=== PATIENT | female | born 1995 | race Caucasian/White ===

== ENCOUNTER 2017-07-03 20:34 | Emergency (ER) | payer SELFPAY ==
[2017-07-03 20:35] VITALS: BP 100/62; PULSE 78; RESP 14; TEMP 36.4; O2SAT 98; BMI 21.9
--- NOTE | 2017-07-03 22:45 | ED.VISSUMM ---
- ER Visit Summary Date of Service: 07/03/17 Chief Complaint: Nausea and vomiting History of Present Illness: The patient is a 22 F nausea vomiting since yesterday. Total 4 episodes, sent home from work yesterday. 2 more episodes today prior to work. No hematemesis. No diarrhea. No abdominal pain. No fevers. She has been tolerating oral fluids since then. She missed work therefore came here. Denies urinary symptoms. Last menstrual period was on the of last month. No cough. No headaches or myalgias. She is a insulin-dependent diabetic for the past year, on 7030 Novolin of 20 units twice a day. Last use was at 6 PM 1 4 hours ago. However she did eat and also drank coffee with sugar in the waiting room. Normal sugars run between 150 and 200. She moved up here from [place] and try to get established with the PCP. Physical Examination: General: Alert and oriented ?3, no acute distress HEENT: Normocephalic, atraumatic. Moist mucosa membranes Neck: supple, nontender. Cardiovascular: Regular rate and rhythm, no murmurs Respiratory: Normal breath sounds, symmetric, no distress Abdomen: Soft, nontender, nondistended Extremities: Nontender, no edema, pulses intact ?4 Neuro: no focal neurological deficits. Test Results: BGT 439. . Emergency Department Course and Treatment: Patient ate a meal and coffee in the waiting room. Vomiting has improved she has been tolerating oral fluids. She has no clinical signs of DKA. She will continue her regimen, monitor her diet. She will be given follow-up with clinic for continued outpatient management. She will return if any worsening symptoms. She is dispensed Zofran for home use as needed. Treatment Plan: [] Disposition: Discharge Impression: 1. Nausea and vomitingresolved 2. Elevated blood glucose with history of diabetes This note was generated with [employer] dictation software. It may contain incorrect words, spelling, and punctuation that were not noted in review of the chart prior to signing ED Disposition - Plan for ED Patient: Disposition: Home or Assisted Living Chief Complaint: Nausea/Vomiting Diagnosis: Nausea and vomiting, Blood glucose elevated Instructions: ED Nausea Vomiting, Long-Term Complications of Diabetes Referrals: Care Physician,No Primary [Primary Care Provider] - Carli Ortega [NON-STAFF] - 3-5 Days
--- NOTE | 2017-07-03 22:50 | ED.DCSUM_ITS ---
- ER Visit Summary Date of Service: 07/03/17 Chief Complaint: Nausea and vomiting History of Present Illness: The patient is a 22 F nausea vomiting since yesterday. Total 4 episodes, sent home from work yesterday. 2 more episodes today prior to work. No hematemesis. No diarrhea. No abdominal pain. No fevers. She has been tolerating oral fluids since then. She missed work therefore came here. Denies urinary symptoms. Last menstrual period was on the of last month. No cough. No headaches or myalgias. She is a insulin- dependent diabetic for the past year, on 7030 Novolin of 20 units twice a day. Last use was at 6 PM 1 4 hours ago. However she did eat and also drank coffee with sugar in the waiting room. Normal sugars run between 150 and 200. She moved up here from [place] and try to get established with the PCP. Physical Examination: General: Alert and oriented ?3, no acute distress HEENT: Normocephalic, atraumatic. Moist mucosa membranes Neck: supple, nontender. Cardiovascular: Regular rate and rhythm, no murmurs Respiratory: Normal breath sounds, symmetric, no distress Abdomen: Soft, nontender, nondistended Extremities: Nontender, no edema, pulses intact ?4 Neuro: no focal neurological deficits. Test Results: BGT 439. . Emergency Department Course and Treatment: Patient ate a meal and coffee in the waiting room. Vomiting has improved she has been tolerating oral fluids. She has no clinical signs of DKA. She will continue her regimen, monitor her diet. She will be given follow-up with clinic for continued outpatient management. She will return if any worsening symptoms. She is dispensed Zofran for home use as needed. Treatment Plan: [] Disposition: Discharge Impression: 1. Nausea and vomitingresolved 2. Elevated blood glucose with history of diabetes This note was generated with [employer] dictation software. It may contain incorrect words, spelling, and punctuation that were not noted in review of the chart prior to signing ED Disposition - Plan for ED Patient: Disposition: Home or Assisted Living Chief Complaint: Nausea/Vomiting Diagnosis: Nausea and vomiting, Blood glucose elevated Instructions: ED Nausea Vomiting, Long-Term Complications of Diabetes Referrals: Care Physician,No Primary [Primary Care Provider] - Carli Ortega [NON-STAFF] - 3-5 Days
[2017-07-03 22:51] LABS: Bedside Glucose 439 mg/dL (70-110)
[2017-07-03] MEDS: Ondansetron ODT 4 MG Tablet PO (22:57)
[2017-07-03 22:58] VITALS: RESP 18
== END 2017-07-03 23:04 | disposition home or self-care (01) ==
LOC: ED 23:04
PROVIDERS: Emergency Provider Emergency Medicine
DX: E10.65 Type 1 diabetes mellitus with hyperglycemia (principal); Z79.4 Long term (current) use of insulin; R11.2 Nausea with vomiting, unspecified; Z72.0 Tobacco use
CPT/HCPCS: 82962; 99282

== ENCOUNTER 2017-07-09 23:44 | Emergency (ER) | payer SELFPAY ==
[2017-07-09 23:48] VITALS: BP 135/86; PULSE 96; RESP 16; TEMP 36.8; O2SAT 100; BMI 28.3
--- NOTE | 2017-07-10 00:35 | ED.VISSUMM ---
- ER Visit Summary Date of Service: 07/10/17 Chief Complaint: Sore throat History of Present Illness: The patient is a 22 F presenting with sore throat ?2 days. She complains of painful swallowing but no difficulty swallowing. No drooling. Denies fever. She has a mild cough. Denies other complaints. Physical Examination: Vitals are stable. Patient is afebrile. Alert no acute distress. HEENT exam: erythema of uvula, uvula is midline. Pharyngeal erythema with no exudate. Neck is supple. No meningismus. No lymphadenopathy Lungs are clear and equal bilaterally. Heart is regular rate and rhythm. Extremities are unremarkable. Skin is warm and dry. No rash Remainder of exam is unremarkable. Emergency Department Course and Treatment: She is given Decadron, Naprosyn, penicillin IM. Advised to follow-up with Dr. Jeffrey correspondence analyst for no doc. Advised return to ED if worsening complaints. Disposition: Discharge home Impression: Pharyngitis This note was generated with [employer] dictation software. It may contain incorrect words, spelling, and punctuation that were not noted in review of the chart prior to signing ED Disposition - Plan for ED Patient: Chief Complaint: Sore Throat Referrals: Care Physician,No Primary [Primary Care Provider] -
--- NOTE | 2017-07-10 00:38 | ED.DCSUM_ITS ---
- ER Visit Summary Date of Service: 07/10/17 Chief Complaint: Sore throat History of Present Illness: The patient is a 22 F presenting with sore throat ? 2 days. She complains of painful swallowing but no difficulty swallowing. No drooling. Denies fever. She has a mild cough. Denies other complaints. Physical Examination: Vitals are stable. Patient is afebrile. Alert no acute distress. HEENT exam: erythema of uvula, uvula is midline. Pharyngeal erythema with no exudate. Neck is supple. No meningismus. No lymphadenopathy Lungs are clear and equal bilaterally. Heart is regular rate and rhythm. Extremities are unremarkable. Skin is warm and dry. No rash Remainder of exam is unremarkable. Emergency Department Course and Treatment: She is given Decadron, Naprosyn, penicillin IM. Advised to follow-up with Dr. Jeffrey identification officer for no doc. Advised return to ED if worsening complaints. Disposition: Discharge home Impression: Pharyngitis This note was generated with [employer] dictation software. It may contain incorrect words, spelling, and punctuation that were not noted in review of the chart prior to signing ED Disposition - Plan for ED Patient: Chief Complaint: Sore Throat Referrals: Care Physician,No Primary [Primary Care Provider] -
--- NOTE | 2017-07-10 00:38 | ED.DEP ---
ED Disposition - Plan for ED Patient: Chief Complaint: Sore Throat Instructions: ED Pharyngitis Viral Referrals: Care Physician,No Primary [Primary Care Provider] - Romaine Jeffrey DO [STAFF PHYSICIAN] -
[2017-07-10] MEDS: Naproxen 500 MG Tablet PO (00:49)
[2017-07-10] MEDS: Penicillin G Benzathine 1.2 MU/2 ML Syringe IM (00:49)
[2017-07-10 00:57] VITALS: RESP 14
== END 2017-07-10 01:23 | disposition home or self-care (01) ==
LOC: ED 07-10 01:15
PROVIDERS: Emergency Provider Emergency Medicine
DX: J02.9 Acute pharyngitis, unspecified (principal); Z72.0 Tobacco use; E11.9 Type 2 diabetes mellitus without complications; Z79.4 Long term (current) use of insulin
CPT/HCPCS: 96372; 99283

== ENCOUNTER 2017-07-11 20:07 | Emergency (ER) | payer SELFPAY ==
[2017-07-11 20:08] VITALS: BP 116/69; PULSE 88; RESP 15; TEMP 37.1; BMI 28.5
--- NOTE | 2017-07-11 20:53 | ED.VISSUMM ---
- ER Visit Summary Date of Service: 07/11/17 Chief Complaint: Sore throat History of Present Illness: The patient is a 22 F who states that she has had 3 days of sore throat. No fevers. She was seen on July 09 and given a shot of penicillin G as well as a dose of Decadron. She states she has not improved. She notes her voice is very hoarse. She has tried salt water gargles. She states she continues to feel poorly. His history of bipolar depression anxiety Physical Examination: Afebrile vital signs are stable Gen: Well-nourished well-developed Head: Normocephalic atraumatic Eyes: Perrl EOMI ENT: TMs clear no rhinorrhea moist mucous membranes patient is without tonsils. Pharyngeal exam shows erythema. There is no abscess seen. She is handling secretions normally. Neck: Supple anterior lymphadenopathy no JVD nontender CVS: Regular rate rhythm no murmurs normal S1-S2 Respiratory: No distress clear to auscultation bilaterally chest nontender Abdomen: Soft nontender nondistended normal bowel sounds no masses Back: Nontender Extremity: Nontender no edema Skin: Normal color no rash Neuro: alert orientated ?3 CN II-XII intact normal strength sensation reflexes gait cerebellar Psych: Normal affect normal mood Emergency Department Course and Treatment: I believe this is most likely a viral pharyngitis. I have her do some viscous lidocaine gargles for eating and drinking. She is to continue supportive care at home. Impression: 1. Pharyngitis This note was generated with [email or web address] dictation software. It may contain incorrect words, spelling, and punctuation that were not noted in review of the chart prior to signing ED Disposition - Plan for ED Patient: Disposition: Home or Assisted Living Chief Complaint: Sore Throat Instructions: ED Pharyngitis Viral Prescriptions: Lidocaine 2% Viscous [Xylocaine Viscous] 15 ml PO Q6H PRN PRN #180 ml PRN Reason: Sore Throat Referrals: Care Physician,No Primary [Primary Care Provider] - Romaine Jeffrey DO [STAFF PHYSICIAN] - 1 Week if not improving
== END 2017-07-11 21:07 | disposition home or self-care (01) ==
PROVIDERS: Emergency Provider Emergency Medicine
DX: J02.9 Acute pharyngitis, unspecified (principal); Z72.0 Tobacco use
CPT/HCPCS: 99283

== ENCOUNTER 2017-12-04 21:08 | Emergency (ER) | payer SELFPAY ==
[2017-12-04 21:09] VITALS: BP 124/69; PULSE 71; RESP 16; TEMP 36.5; O2SAT 98; BMI 28.3
--- NOTE | 2017-12-04 21:39 | ED.VISSUMM ---
- ER Visit Summary Date of Service: 12/04/17 Chief Complaint: Dental pain History of Present Illness: The patient is a 22 F who presents with dental pain. She has noticed some tissue near 1 of her left lower teeth for about 5 months. However the pain was worse tonight about 2 hours prior to presentation. She does note hot and cold sensitivity. She has tried topical oral analgesics with little relief. No fevers. No vomiting. Physical Examination: Afebrile vitals are normal Patient has focal gingival decay at the left mandibular central incisor there does appear to be some exposed root she has tenderness on percussion no focal abscess amenable to incision and drainage Heart regular Lungs clear Test Results: Not indicated Emergency Department Course and Treatment: Patient will be given prescriptions for Penicillin VK and naproxen for symptom control. She was a list of dental clinics to follow-up with. She understands to return for new or worsening symptoms. She was discharged home. Treatment Plan: [] Disposition: Discharge Impression: Odontalgia This note was generated with [employer] dictation software. It may contain incorrect words, spelling, and punctuation that were not noted in review of the chart prior to signing ED Disposition - Plan for ED Patient: Chief Complaint: Dental Referrals: Care Physician,No Primary [Primary Care Provider] -
--- NOTE | 2017-12-04 21:41 | ED.DEP ---
ED Disposition - Plan for ED Patient: Chief Complaint: Dental Instructions: ED Tooth Pain Prescriptions: Naproxen [Naprosyn] 500 mg PO BID #20 tab Penicillin V Potassium 500 mg PO 4X/DAY #40 tab Referrals: Care Physician,No Primary [Primary Care Provider] -
[2017-12-04 22:06] VITALS: RESP 16
== END 2017-12-04 22:06 | disposition home or self-care (01) ==
PROVIDERS: Emergency Provider Emergency Medicine
DX: K02.7 Dental root caries (principal); E11.9 Type 2 diabetes mellitus without complications; Z79.4 Long term (current) use of insulin; Z72.0 Tobacco use
CPT/HCPCS: 99282

== ENCOUNTER 2018-01-10 08:55 | Emergency (ER) | payer SELFPAY ==
[2018-01-10 08:56] VITALS: BP 120/69; PULSE 86; RESP 15; TEMP 36.8; O2SAT 98; BMI 28.3
--- NOTE | 2018-01-10 09:45 | ED.VISSUMM ---
- ER Visit Summary Date of Service: 01/10/18 Chief Complaint: Left flank and abdominal pain History of Present Illness: The patient is a 22 F. No prior abdominal surgeries. 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 Patient states she has had intermittent abdominal pain since last evening. Associated diarrhea but no vomiting. No fever. She has had some mild dysuria. No history of stones. Denies any abdominal trauma. No fever. Physical Examination: Neck nontender. Lungs clear to auscultation bilaterally. Heart regular rate and rhythm. Abdomen is soft nondistended normal bowel sounds no peritoneal signs. Mild left upper quadrant. Normal bowel sounds. Both the right upper and right lower quadrants are unremarkable. No hernias or masses. No signs of obstruction. Back nontender no CVA tenderness. Moving all 4 extremities. Skin unremarkable other than multiple tattoos. Neurologic exam normal. Test Results: CBC normal white count of 10. Hemoglobin 14. Chemistries unremarkable. Gap is 7. Creatinine normal. Glucose is elevated 177. Patient does have a history of diabetes. Lipase normal at 86. Urine 5-10 whites 2+ bacteria. There are epithelial cells this may be contaminant. No nitrates. Serum test negative. A urine culture be sent. Multiple repeat exams. Her CT flank showed a right ovarian cyst of 2.9 x 2.8 cm. I do not think this is the cause of her pain. Emergency Department Course and Treatment: Patient treated with IV fluids, Toradol, morphine and Zofran. Treatment Plan: Resting comfortably. She will be started on Bactrim DS twice daily for 5 days for a possible UTI and a urine culture was sent. Disposition: discharge Impression: Acute left flank pain of uncertain etiology Rule out UTI Small right ovarian cyst This note was generated with [employer] dictation software. It may contain incorrect words, spelling, and punctuation that were not noted in review of the chart prior to signing ED Disposition - Plan for ED Patient: Chief Complaint: Abd Pain Instructions: ED Abdominal Pain Unkn Cause Prescriptions: Smz/Tmp Ds [Bactrim Ds] 1 tab PO BID #9 tab Referrals: Waldo Og MD [STAFF PHYSICIAN] - 1 Week if not improving Additional Instructions: Tylenol and Motrin for pain. The CAT scan shows no acute abnormality. There is an incidental small right ovarian causing her pain. Your urine may have an early infection or it may just be. We will do a urine culture. We will treat you with the antibiotic Bactrim 1 pill twice a day for 3 days.
[2018-01-10] MEDS: 0.9% Normal Saline 1,000 ML 1000 ML IV (10:02)
[2018-01-10] MEDS: Ondansetron 4 MG/2 ML Vial IV (10:03)
[2018-01-10] MEDS: Ketorolac 30 MG/ML Syringe IV (10:03)
[2018-01-10] MEDS: Morphine 4 MG/ML Syringe IV (10:03)
[2018-01-10 10:15] LABS: Mucous, Urine 0 SEEN /hpf (<or=2+)
[2018-01-10 10:20] LABS: Color, Urine Yellow (Yellow); Glucose, Dipstick 1000 mg/dl (Normal); Ketone-Dipstick Negative (Negative); Leukocyte Esterase-Dipstick 25 /ul (Negative); Nitrite-Dipstick Negative (Negative); Occult Blood-Urine Negative /ul (Negative); Protein-Dipstick 30 mg/dl (Negative); Specific Gravity, Urine 1.015 (1.002-1.030); Urine Bilirubin Dipstick Negative (Negative); Urine Clarity Clear (Clear); Urine Urobilinogen 4 mg/dl (Normal)
[2018-01-10 10:24] LABS: Absolute Lymphocyte Count 1.64 X10^3/ul (0.83-4.51); Absolute Neutrophil Count 7.8 X10^3/uL (2.0-7.7); Basophil# 0.04 X10^3/uL; Basophil% 0.4 % (0-1); Eosinophil# 0.05 X10^3/uL; Eosinophils% 0.5 % (0-5); Hematocrit 43.8 % (37-47); Hemoglobin 14.2 g/dl (12.0-15.0); Lymphocyte # 1.64 X10^3/ul (4.0); Lymphocyte % 16.1 % (19-41); Mean Corp Hgb Conc 32.4 g/gl (32-36); Mean Corpuscular Hgb 29.3 pg (27.0-32.0); Mean Corpuscular Volume 90.5 fL (81-99); Monocyte# 0.66 X10^3/uL; Monocyte% 6.5 % (0-10); Neutrophil # 7.75 X10^3/uL (2.7-7.7); Neutrophil % 76.3 % (47-70); Platelet Count 282 K/mm3 (150-450); RBC Distribution Width CV 13.5 % (11.6-14.6); RBC Distribution Width SD 44.6 fl (35.1-43.9); Red Blood Count 4.84 M/mm3 (4.2-5.4); White Blood Count 10.2 K/mm3 (4.4-11.0)
[2018-01-10 10:27] LABS: Red Blood Cells-Urine 0-5 SEEN /hpf (0-5); Squamous Epithelial Cells - UA 5-10 SEEN /hpf (5-10); White Blood Cells 5-10 SEEN /hpf (0-5)
[2018-01-10 10:28] LABS: Bacteria 2+ /hpf (None Seen)
[2018-01-10 10:29] LABS: POSITIVE COUNT NO; POSITIVE DIFFERENTIAL NO; POSITIVE MORPHOLOGY NO
[2018-01-10 10:32] LABS: Anion Gap 7 (5-15); BUN 8 mg/dL (7-18); Chloride 105 mmol/L (98-107); Creatinine, Serum 0.67 mg/dL (0.55-1.02); EST Glomerular Filtration Rate 117 mL/min (>60); Est Glom Filt Rate - Afr Amer 141 mL/min (>60); Estimated Creatinine Clearance 128.08 ml/min; Glucose 177 mg/dL (74-106); Lipase 86 U/L (73-393); Potassium 3.6 mmol/L (3.5-5.1); Sodium Level 139 mmol/L (136-145)
[2018-01-10 10:45] LABS: Pregnancy, Serum, hCG Quali. NEGATIVE Negative (0-9 Nonpreg)
[2018-01-10 11:49] VITALS: BP 110/60; PULSE 65; RESP 16; O2SAT 96
[2018-01-10 15:20] VITALS: BP 115/63; PULSE 54; RESP 14; O2SAT 97
--- NOTE | 2018-01-10 15:38 | ED.DEP ---
ED Disposition - Plan for ED Patient: Chief Complaint: Abd Pain Instructions: ED Abdominal Pain Unkn Cause Prescriptions: Smz/Tmp Ds [Bactrim Ds] 1 tab PO BID #9 tab Referrals: Waldo Og MD [STAFF PHYSICIAN] - 1 Week if not improving Additional Instructions: Tylenol and Motrin for pain. The CAT scan shows no acute abnormality. There is an incidental small right ovarian causing her pain. Your urine may have an early infection or it may just be. We will do a urine culture. We will treat you with the antibiotic Bactrim 1 pill twice a day for 3 days.
[2018-01-10] MEDS: Smz/Tmp Ds Tablet 1 TABLET PO (15:40)
== END 2018-01-10 15:45 | disposition home or self-care (01) ==
PROVIDERS: Emergency Provider Emergency Medicine
DX: R10.9 Unspecified abdominal pain (principal); N83.201 Unspecified ovarian cyst, right side; E11.9 Type 2 diabetes mellitus without complications; Z79.4 Long term (current) use of insulin; Z72.0 Tobacco use
CPT/HCPCS: 74176; 80048; 81001; 83690; 84703; 85025; 87077; 87086; 87088; 87186; 96361; 96374; 96375; 99284; J7030; A4216; J2405

== ENCOUNTER 2018-10-15 20:48 | Emergency (ER) | payer BC, SELFPAY ==
[2018-10-15 20:48] VITALS: BP 118/64; PULSE 87; RESP 16; TEMP 36.8; O2SAT 98; BMI 28.0
[2018-10-15] MEDS: Smz/Tmp Ds Tablet 1 TABLET PO (22:02)
[2018-10-15] MEDS: Cephalexin 250 MG Capsule 500 MG PO (22:02)
[2018-10-15 22:03] VITALS: BP 116/73; PULSE 83; RESP 16; TEMP 36.5; O2SAT 100
--- NOTE | 2018-10-15 22:54 | ED.VISSUMM ---
- ER Visit Summary Date of Service: 10/15/18 Chief Complaint: Abscess History of Present Illness: The patient is a 23 F with an abscess on her right posterior thigh. Physical Examination: Patient has a 3 cm area of induration with surrounding erythema about the size of her palm. This is located on her posterior right thigh. Test Results: None performed Emergency Department Course and Treatment: Patient gave verbal consent for I&D. Prepped with alcohol. Infiltrated with lidocaine. Patient tolerated this well. 2 cm incision was made and copious pus was drained. Wound was left open. Patient treated with Bactrim and Keflex. She was given wound care instructions. Follow-up with primary care for recheck. Return right away for any complications. Treatment Plan: As above Disposition: Discharge Impression: Right thigh abscess This note was generated with [employer] dictation software. It may contain incorrect words, spelling, and punctuation that were not noted in review of the chart prior to signing ED Disposition - Plan for ED Patient: Disposition: Home or Assisted Living Instructions: ED Abscess IandD Prescriptions: Cephalexin [Keflex] 500 mg PO Q6 #28 cap Smz/Tmp Ds [Bactrim Ds] 1 tab PO BID #14 tab Referrals: Carli Ortega [NON-STAFF] -
== END 2018-10-15 23:07 | disposition home or self-care (01) ==
LOC: ED 21:30
PROVIDERS: Emergency Provider Emergency Medicine
DX: L02.415 Cutaneous abscess of right lower limb (principal); Z72.0 Tobacco use
CPT/HCPCS: 10060; 99283

== ENCOUNTER 2019-04-21 10:01 | Emergency (ER) | payer BC, SELFPAY ==
[2019-04-21 10:02] VITALS: BP 127/73; PULSE 89; RESP 16; TEMP 36.7; O2SAT 97; BMI 29.2
--- NOTE | 2019-04-21 10:26 | ED.VISSUMM ---
- ER Visit Summary Date of Service: 04/21/19 Chief Complaint: Abdominal pain History of Present Illness: The patient is a 23 F 3 of diabetes. No prior abdominal surgeries. She had prior heart surgery for co-arctatian of the aorta. Patient states that she has had left upper quadrant abdominal pain for approximately a week. Associated nausea vomiting. No diarrhea. No constipation. No fever. She has had mild nausea vomiting. No dysuria. No vaginal bleeding or discharge. Last menstrual period was approximately a week ago. Nothing particular makes the pain better or worse. She is never had any abdominal surgeries. Physical Examination: Young female no acute distress vital signs stable afebrile. HEENT exam unremarkable. Neck nontender no lymphadenopathy. Lungs clear to auscultation bilaterally. Heart regular rhythm no murmur. Abdomen is soft. Nondistended normal bowel sounds no peritoneal signs. There is really no significant localizing tenderness. No masses. No signs of obstruction. No hernias. No right upper right lower quadrant tenderness. Moving all 4 extremities.. Calves are nontender without edema or cords. Neurologically she is awake and alert with no focal motor or sensory deficits. Back exam is nontender. Test Results: CBC normal white count 8. Hemoglobin 15. Chemistries normal normal creatinine gap. Liver enzymes and lipase normal. UA normal. test negative. Emergency Department Course and Treatment: Patient treated with IV fluids and IV Zofran. She is a very benign abdominal exam. She has significant work-up about a year ago which at that time had unremarkable labs and a CAT scan only showing a ovarian cyst. Repeat exam at 1220 patient's abdomen is benign. She and I went over all of her test results. She is had a prior CT a year ago. I do not feel that is necessary today. Treatment Plan: Zofran as needed for nausea. Tylenol for pain. Follow-up with your doctor. Disposition: Discharge Impression: Abdominal pain uncertain etiology of the left upper quadrant. Nausea vomiting History of diabetes This note was generated with [employer] dictation software. It may contain incorrect words, spelling, and punctuation that were not noted in review of the chart prior to signing ED Disposition - Plan for ED Patient: Referrals: Care Physician,No Primary [Primary Care Provider] -
[2019-04-21 10:45] LABS: Absolute Lymphocyte Count 2.41 X10^3/uL (0.83-4.51); Basophil# 0.08 X10^3/uL; Eosinophil# 0.25 X10^3/uL; Hematocrit 44.6 % (37-47); Hemoglobin 15.1 g/dL (12.0-15.0); Lymphocyte # 2.41 X10^3/ul (4.0); Lymphocyte % 29.3 % (19-41); Mean Corp Hgb Conc 33.9 g/dL (32-36); Mean Corpuscular Volume 88.5 fL (81-99); Mean Platelet Vol. 10.4 fl (6.2-12.0); Monocyte# 0.48 X10^3/uL; Monocyte% 5.8 % (0-10); NRBC Flagged by Analyzer 0 % (0-5); Neutrophil # 4.98 X10^3/uL (2.7-7.7); Neutrophil % 60.7 % (47-70); Platelet Count 301 K/mm3 (150-450); RBC Distribution Width CV 12.5 % (11.6-14.6); Red Blood Count 5.04 M/mm3 (4.2-5.4); White Blood Count 8.2 K/mm3 (4.4-11.0)
[2019-04-21 10:59] LABS: Internal QC Validated? YES +Cl - CLEAR BKGD; Pregnancy, Serum, hCG Quali. NEGATIVE Negative
[2019-04-21 11:02] LABS: AST(SGOT) 9 U/L (15-37); Alanine Aminotransfer ALT/SGPT 15 U/L (13-56); Albumin, Serum 3.7 g/dL (3.2-5.0); Alkaline Phosphatase 87 U/L (45-117); Anion Gap 4 (5-15); BUN 16 mg/dL (7-18); BUN/Creat Ratio 20.2 RATIO (10-20); Bilirubin, Direct 0.13 mg/dL (0.00-0.30); Calcium,Total 9.2 mg/dL (8.5-10.1); Chloride 103 mmol/L (98-107); Creatinine, Serum 0.79 mg/dL (0.55-1.02); EST Glomerular Filtration Rate 95 mL/min (>60); Est Glom Filt Rate - Afr Amer 115 mL/min (>60); Globulin 3.7 g/dL (2.2-4.2); Glucose 145 mg/dL (74-106); Lipase 89 U/L (73-393); Potassium 4.1 mmol/L (3.5-5.1); Protein, Total 7.4 g/dL (6.4-8.2); Sodium Level 138 mmol/L (136-145)
[2019-04-21] MEDS: 0.9% Normal Saline 1,000 ML 1000 ML IV (11:06)
[2019-04-21] MEDS: Ondansetron 4 MG/2 ML Vial IV (11:06)
[2019-04-21 11:12] LABS: Mucous, Urine 0 SEEN /hpf (<or=2+); Red Blood Cells-Urine 0 SEEN /hpf (0-5)
[2019-04-21 11:15] LABS: Color, Urine Yellow (Yellow); Glucose, Dipstick Normal (Normal); Ketone-Dipstick Negative (Negative); Leukocyte Esterase-Dipstick 25 /ul (Negative); Nitrite-Dipstick Negative (Negative); Occult Blood-Urine Negative /ul (Negative); Protein-Dipstick 15 mg/dl (Negative); Urine Bilirubin Dipstick Negative (Negative); Urine Clarity Clear (Clear); Urine Urobilinogen Normal (Normal)
[2019-04-21 11:33] LABS: Bacteria 1+ /hpf (None Seen); Squamous Epithelial Cells - UA 0-5 SEEN /hpf (5-10); White Blood Cells 0-5 SEEN /hpf (0-5)
[2019-04-21 12:20] LABS: Bedside Glucose 77 mg/dL (70-110)
--- NOTE | 2019-04-21 12:28 | ED.DEP ---
ED Disposition - Plan for ED Patient: Disposition: Home or Assisted Living Instructions: ABDOMINAL PAIN, Unknown Cause, (Female) Referrals: Waldo Og MD [STAFF PHYSICIAN] - 3-5 Days if not improving Additional Instructions: Fluids and rest. Follow-up with a local primary care physician. All your tests were normal today.
[2019-04-21 12:34] VITALS: BP 105/59; PULSE 69; RESP 16; O2SAT 98
== END 2019-04-21 12:40 | disposition home or self-care (01) ==
PROVIDERS: Emergency Provider Emergency Medicine
DX: R10.12 Left upper quadrant pain (principal); R11.2 Nausea with vomiting, unspecified; E11.9 Type 2 diabetes mellitus without complications; Z79.4 Long term (current) use of insulin; Z72.0 Tobacco use
CPT/HCPCS: 80048; 80076; 81001; 82962; 83690; 84703; 85025; 96361; 96374; 99283; J7030; A4216; J2405

== ENCOUNTER 2019-05-18 11:03 | Observation (INO) | payer BC, SELFPAY ==
[2019-05-18 11:03] VITALS: BP 127/72; PULSE 120; RESP 16; TEMP 36.6; O2SAT 99; BMI 26.5
[2019-05-18] MEDS: 0.9% Normal Saline 1,000 ML 1000 ML IV ×2 (11:20→11:58)
--- NOTE | 2019-05-18 11:22 | RAD_ITS ---
STUDY: X-RAY CHEST REASON FOR EXAM: Female, 24 years old. n/v left abd pain started this am TECHNIQUE: PA and lateral views of the chest. COMPARISON: 05/27/2017 FINDINGS: EKG leads project over the chest. The lungs are clear and expanded. There is no demonstrated pleural abnormality. Normal size heart. Normal mediastinum and curly. Normal visualized pulmonary arteries. Normal visualized aortic arch and descending thoracic aorta. There are diffuse degenerative changes of the visualized thoracic spine. Normal visualized ribs, clavicles, and shoulders. There is no demonstrated abnormality of the visualized soft tissue structures of the upper abdomen. RAD/Chest PA and Lateral IMPRESSION: No acute cardiopulmonary process. Electronically Signed: Chidi Wen MD ([place]) at 12:25 EST , Service support ,
--- NOTE | 2019-05-18 11:23 | ED.VIS.GEN ---
History of Present Illness Chief Complaint: Nausea/Vomiting Informant: Patient Onset: Today Context: Gradual Onset Timing: Continuous Quality: nonbilious n/v. soreness. Location: lower abd, only when vomiting. n/v started first. Current Severity: Moderate - nausea. no pain. Maximum Severity: Moderate Worsened by: vomiting Relieved by: nothing Associated Symptoms: cough prod of yellow sputum x 2 mos. feeling sob this AM. Narrative: No fevers. Patient is a type I diabetic, when she started vomiting this morning she took her insulin and then checked her blood sugar and it was over 400. She does not remember what it was yesterday. She felt fine except for the productive cough prior to this morning. Denies any diarrhea. No known sick contacts with similar symptoms. 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 MRSA buttock infection. Lives: Spouse/ Significant Other Smoking Status: Current every day smoker Drugs: None Review of Systems General: Reports: Malaise. Denies: Chills, Fever, Sweats Eyes: Denies: Visual changes - bilaterally, Diplopia ENT: Denies: Bilateral ear pain, Rhinorrhea, Sore throat Cardiovascular: Denies: Chest pain, Palpitations Respiratory: Reports: Dyspnea, Cough, Sputum. Denies: Dyspnea on exertion, Orthopnea Gastrointestinal: Reports: Abdominal pain, Nausea, Vomiting. Denies: Diarrhea, Melena, Hematochezia Genitourinary: Reports: Frequency - today only. Denies: Dysuria, Hematuria Musculoskeletal: Denies: Back pain, Extremity Pain Skin: Denies: Rash, Wounds Neurological: Denies: Headache, Weakness, Numbness Endocrine: Reports: Polyuria. Denies: Heat intolerance, Cold intolerance Physical Exam Vital Signs/Narrative: Vital Signs Temp Pulse Resp BP Pulse Ox 05/18/19 11:03 97.8 F 120 H 16 127/72 H 99 Inital Vital Signs reviewed: Yes General: Well nourished, Well developed, No Acute Distress Head: Normocephalic, Atraumatic Eyes: Perrl, EOMI ENT: Moist mucous membranes, No rhinorrhea Neck: Supple, Nontender, No lymphadenopathy Cardiovascular: Regular rate, Regular rhythm, No murmurs, Tachycardia Respiratory: No distress, CTA bilaterally, Chest nontender Abdomen: Soft, Nontender, Nondistended, Normal bowel sounds Back: Nontender, Normal Inspection Extremities: Nontender, No edema Skin: Normal color, No rash, No Trauma Neurological: Alert, Oriented x3, Cranial nerves II-XII grossly intact, Normal Strength, Normal Sensation, Normal Gait Psychological: Normal affect, Normal Mood Diagnostic/Tx/Re-eval Chest X-Ray - ED: 2 View, Read by ED Physician, Normal, Heart, Lungs, Mediastinum, Bony Structures, No Acute Disease 05/18/19 11:22 Chest PA and Lateral [RAD] Stat Laboratory Results 05/18/19 05/18/19 05/18/19 11:20 11:20 11:20 WBC 10.6 RBC 5.41 H Hgb 15.7 H Hct 48.8 H MCV 90.2 MCH 29.0 MCHC 32.2 RDW Std Deviation 43.3 RDW Coeff of Raymundo 13.1 Plt Count 328 MPV 10.7 Immature Gran % (Auto) 0.700 Neut % (Auto) 77.7 H Lymph % (Auto) 15.4 L [place] % (Auto) 4.0 Eos % (Auto) 1.4 Baso % (Auto) 0.8 Absolute Neuts (auto) 8.3 H Absolute Lymphs (auto) 1.64 Nucleated RBC % 0 Specimen Type VBG pH VBG pO2 VBG O2 Sat (Calc) VBG O2 Content VBG Base Excess POC Mix VBG pCO2 Pt Tmp O2 Delivery Device Blood Gas Notified Whom Blood Gas Notified Time Sodium 135 L Potassium 4.4 Chloride 102 Carbon Dioxide 19.0 L Anion Gap 14 BUN 16 Creatinine 1.02 Estim Creat Clear Calc 82.70 Est GFR (MDRD) Af Amer 86 Est GFR (MDRD) Non-Af 71 BUN/Creatinine Ratio 15.7 Glucose 399 H Calcium 9.0 Urine Color Urine Clarity Urine pH Ur Specific [place] Urine Protein Urine Glucose (UA) Urine Ketones Urine Occult Blood Urine Nitrite Urine Bilirubin Urine Urobilinogen Ur Leukocyte Esterase Urine RBC Urine WBC Ur Squamous Epith Cells Urine Bacteria Urine Mucus Urine Test Acetone Level SMALL H POC Glucose 05/18/19 05/18/19 05/18/19 11:20 11:20 11:30 WBC RBC Hgb Hct MCV MCH MCHC RDW Std Deviation RDW Coeff of Raymundo Plt Count MPV Immature Gran % (Auto) Neut % (Auto) Lymph % (Auto) [place] % (Auto) Eos % (Auto) Baso % (Auto) Absolute Neuts (auto) Absolute Lymphs (auto) Nucleated RBC % Specimen Type VBG pH VBG pO2 VBG O2 Sat (Calc) VBG O2 Content VBG Base Excess POC Mix VBG pCO2 Pt Tmp O2 Delivery Device Blood Gas Notified Whom Blood Gas Notified Time Sodium Potassium Chloride Carbon Dioxide Anion Gap BUN Creatinine Estim Creat Clear Calc Est GFR (MDRD) Af Amer Est GFR (MDRD) Non-Af BUN/Creatinine Ratio Glucose Calcium Urine Color Yellow Urine Clarity Clear Urine pH 5.0 Ur Specific [place] 1.020 Urine Protein 30 H Urine Glucose (UA) 1000 H Urine Ketones 150 H Urine Occult Blood Negative Urine Nitrite Negative Urine Bilirubin Negative Urine Urobilinogen Normal Ur Leukocyte Esterase Negative Urine RBC 0 SEEN Urine WBC 0 SEEN Ur Squamous Epith Cells 0-5 SEEN Urine Bacteria 0 SEEN Urine Mucus 0 SEEN Urine Test Negative Acetone Level POC Glucose 399 H 05/18/19 11:53 WBC RBC Hgb Hct MCV MCH MCHC RDW Std Deviation RDW Coeff of Raymundo Plt Count MPV Immature Gran % (Auto) Neut % (Auto) Lymph % (Auto) [place] % (Auto) Eos % (Auto) Baso % (Auto) Absolute Neuts (auto) Absolute Lymphs (auto) Nucleated RBC % Specimen Type JONNY VBG pH 7.22 L VBG pO2 39 VBG O2 Sat (Calc) 63 VBG O2 Content 18 L VBG Base Excess -11 L POC Mix VBG pCO2 Pt Tmp 40.5 L O2 Delivery Device Room Air Blood Gas Notified Whom ED Blood Gas Notified Time 1151 Sodium Potassium Chloride Carbon Dioxide Anion Gap BUN Creatinine Estim Creat Clear Calc Est GFR (MDRD) Af Amer Est GFR (MDRD) Non-Af BUN/Creatinine Ratio Glucose Calcium Urine Color Urine Clarity Urine pH Ur Specific [place] Urine Protein Urine Glucose (UA) Urine Ketones Urine Occult Blood Urine Nitrite Urine Bilirubin Urine Urobilinogen Ur Leukocyte Esterase Urine RBC Urine WBC Ur Squamous Epith Cells Urine Bacteria Urine Mucus Urine Test Acetone Level POC Glucose - Medical Decision Making Work-up is consistent with DKA. Her chest x-ray does not show any pneumonia. Her urinalysis shows no infection. This may be related to her insulin usage and diet. She probably has a viral URI, there has been a high prevalence of multiple respiratory viruses in the area recently. We will start an insulin drip in peripheral IV for now and admit to the hospital. 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
[2019-05-18 11:31] LABS: Bacteria 0 SEEN /hpf (None Seen); Mucous, Urine 0 SEEN /hpf (<or=2+); Red Blood Cells-Urine 0 SEEN /hpf (0-5); White Blood Cells 0 SEEN /hpf (0-5)
[2019-05-18] MEDS: Ondansetron 4 MG/2 ML Vial IV (11:31)
[2019-05-18 11:33] LABS: Absolute Lymphocyte Count 1.64 X10^3/uL (0.83-4.51); Absolute Neutrophil Count 8.3 X10^3/uL (2.0-7.7); Basophil# 0.09 X10^3/uL; Basophil% 0.8 % (0-1); Eosinophil# 0.15 X10^3/uL; Eosinophils% 1.4 % (0-5); Hematocrit 48.8 % (37-47); Hemoglobin 15.7 g/dL (12.0-15.0); Lymphocyte # 1.64 X10^3/ul (4.0); Lymphocyte % 15.4 % (19-41); Mean Corp Hgb Conc 32.2 g/dL (32-36); Mean Corpuscular Volume 90.2 fL (81-99); Mean Platelet Vol. 10.7 fl (6.2-12.0); Monocyte# 0.43 X10^3/uL; NRBC Flagged by Analyzer 0 % (0-5); Neutrophil # 8.26 X10^3/uL (2.7-7.7); Neutrophil % 77.7 % (47-70); Platelet Count 328 K/mm3 (150-450); RBC Distribution Width CV 13.1 % (11.6-14.6); RBC Distribution Width SD 43.3 fl (35.1-43.9); Red Blood Count 5.41 M/mm3 (4.2-5.4); White Blood Count 10.6 K/mm3 (4.4-11.0)
[2019-05-18 11:34] LABS: Color, Urine Yellow (Yellow); Glucose, Dipstick 1000 mg/dl (Normal); Leukocyte Esterase-Dipstick Negative /ul (Negative); Nitrite-Dipstick Negative (Negative); Occult Blood-Urine Negative /ul (Negative); Protein-Dipstick 30 mg/dl (Negative); Urine Bilirubin Dipstick Negative (Negative); Urine Clarity Clear (Clear); Urine Urobilinogen Normal (Normal)
[2019-05-18 11:35] LABS: Internal QC Validated? YES +Cl - CLEAR BKGD; Ketone-Dipstick 150 mg/dl (Negative); Pregnancy, Urine Negative Negative
[2019-05-18 11:35] LABS: Bedside Glucose 399 mg/dL (70-110)
[2019-05-18 11:39] LABS: Squamous Epithelial Cells - UA 0-5 SEEN /hpf (5-10)
[2019-05-18 11:49] LABS: Anion Gap 14 (5-15); BUN 16 mg/dL (7-18); BUN/Creat Ratio 15.7 RATIO (10-20); Chloride 102 mmol/L (98-107); Creatinine, Serum 1.02 mg/dL (0.55-1.02); EST Glomerular Filtration Rate 71 mL/min (>60); Est Glom Filt Rate - Afr Amer 86 mL/min (>60); Glucose 399 mg/dL (74-106); Potassium 4.4 mmol/L (3.5-5.1); Sodium Level 135 mmol/L (136-145)
[2019-05-18 11:56] LABS: Blood Gas Specimen Type VEN; O2 Delivery Device Room Air; Time Given 1151; VBG BASE EXCESS -11 mmol/L (-1.0-3.5); VBG Bicarbonate 17 mmol/L (22-26); VBG Oxygen Content 18 mmol/L (23-33); VBG PO2 39 mmHg (25-40); VBG SO2 63 % (50-70); VBG pCO2 40.5 mmHg (41-51); VBG pH 7.22 (7.32-7.42)
[2019-05-18 12:52] VITALS: BP 135/75; PULSE 84; RESP 17; O2SAT 99
--- NOTE | 2019-05-18 12:59 | HP.PCM_ITS ---
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 The patient is a 24 year old F who presents emergency room due to nausea, vomiting and abdominal pain. Patient also reports blood sugar check at home was greater than 400. Since being admitted she denies further GI symptoms. Tearful during assessment and does not want to be admitted, stating I have to be to work at 7 AM. Patient admits to very infrequent blood glucose checks at home. Patient reports provider in [place] prescribed NovoLog 70/30 a few years ago and patient now gets this [id number] at [facility]. Patient reports compliant with daily insulin regimen. Other past medical history includes recurrent buttock abscesses/MRSA infection, tobacco dependence, occasional marijuana use. Past Medical History Past Medical History (Chronic Problems): Chronic Problems Type 1 diabetes mellitus (Chronic) MRSA (methicillin resistant Staphylococcus aureus) infection (Chronic) Allergies azithromycin [From Zithromax] Adverse Reaction (Verified 05/18/19 11:07) Rash Home Medications: Ambulatory Orders Medication Instructions Recorded Insulin NPH/Reg 70/30 [Novolin 20 units SC BIDAC 01/10/18 70/30] Surgical History: - - aorta coarctation repair. MRSA buttock infection. Tonsillectomy. 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 Denies: Head Aches, Sinus Congestion, Sinus Drainage Cardiovascular: Denies: Chest Pain, Edema, Light Headedness, Palpitations, Syncope Respiratory: Reports: Cough. Denies: Shortness of Breath, Sputum production, Wheezing Gastrointestinal: Reports: Abdominal Pain, Nausea, Vomiting Genitourinary: Denies: Dysuria Musculoskeletal: Denies: Joint Pain, Joint Tenderness Skin: Denies: Rash, Wounds Neurological: Denies: Numbness, Tingling, Focal weakness Psychiatric: Denies: Anxiety, Depression, Homicidal Ideations, Suicidal Ideation s Hematologic/ Lymphatic: Denies: Easy Bruising, Easy Bleeding VTE Information - Inpt Only VTE Present on Admission: No VTE Mechan Device Prophylaxis: None VTE Pharm Prophylaxis ordered?: No Reason prophylaxis not ordered:: Treatment Not Indicated Patient Problems: Active and Suspected Problems DKA (diabetic ketoacidosis) (Acute) - Physical Exam Vitals/I&O's: Vital Signs Temp Pulse Resp BP Pulse Ox 97.8 F 84 17 135/75 H 99 05/18/19 11:03 05/18/19 12:52 05/18/19 12:52 05/18/19 12:52 05/18/19 12:52 Oxygen Delivery Method Room Air Weight: 169 lb 9.6 oz Body Mass Index (BMI) 26.5 Finger Stick Blood Glucose 399 Intake and Output for Last 24 Hours 05/16/19 05/17/19 05/18/19 23:59 23:59 23:59 Intake Total 1999 Balance 1999 General: Alert, Oriented x3, Cooperative HEENT: Atraumatic, PERRLA, EOMI, Normocephalic Neck: Supple, No JVD, Negative Carotid Bruits Lungs: Clear to auscultation, Normal air movement Cardiovascular: Regular rate, Regular Rhythm, Normal S1, Normal S2, No murmurs Abdomen: Bowel Sounds Present, Soft, Non Tender, Non-Distended Extremities: No clubbing, No cyanosis, No edema, Capillary Refill Less than 3 Seconds Skin: No rashes, No breakdown Musculoskeletal: No Tenderness to Palpation of Joints or Extremities Neurological: Cranial nerves II-XII grossly intact, Neuro grossly intact Psych/Mental Status: Normal Affect, Appropriate Laboratory Results 05/18/19 11:20: WBC 10.6, RBC 5.41 H, Hgb 15.7 H, Hct 48.8 H, MCV 90.2, MCH 29.0, MCHC 32.2, RDW Std Deviation 43.3, RDW Coeff of Raymundo 13.1, Plt Count 328, MPV 10.7, Immature Gran % (Auto) 0.700, Neut % (Auto) 77.7 H, Lymph % (Auto) 15.4 L, [place] % (Auto) 4.0, Eos % (Auto) 1.4, Baso % (Auto) 0.8, Absolute Neuts (auto) 8.3 H, Absolute Lymphs (auto) 1.64, Nucleated RBC % 0 05/18/19 11:20: Sodium 135 L, Potassium 4.4, Chloride 102, Carbon Dioxide 19.0 L , Anion Gap 14, BUN 16, Creatinine 1.02, Estim Creat Clear Calc 82.70, Est GFR (MDRD) Af Amer 86, Est GFR (MDRD) Non-Af 71, BUN/Creatinine Ratio 15.7, Glucose 399 H, Calcium 9.0 05/18/19 11:20: Acetone Level SMALL H 05/18/19 11:20: Urine Test Negative 05/18/19 11:20: Urine Color Yellow, Urine Clarity Clear, Urine pH 5.0, Ur Specific [place] 1.020, Urine Protein 30 H, Urine Glucose (UA) 1000 H, Urine Ketones 150 H, Urine Occult Blood Negative, Urine Nitrite Negative, Urine Bilirubin Negative, Urine Urobilinogen Normal, Ur Leukocyte Esterase Negative, Urine RBC 0 SEEN, Urine WBC 0 SEEN, Ur Squamous Epith Cells 0-5 SEEN, Urine Bacteria 0 SEEN, Urine Mucus 0 SEEN 05/18/19 11:30: POC Glucose 399 H 05/18/19 11:53: Specimen Type JONNY, VBG pH 7.22 L, VBG pO2 39, VBG O2 Sat (Calc) 63, VBG O2 Content 18 L, VBG Base Excess -11 L, POC Mix VBG pCO2 Pt Tmp 40.5 L, O2 Delivery Device Room Air, Blood Gas Notified Whom ED MD, Blood Gas Notified Time 1151 Current Medications Dextrose (D50w Syringe) 0 gm IV X1 PRN; Protocol PRN Reason: Hypoglycemia Protocol Sodium Chloride () 1,000 mls @ 1,000 mls/hr IV .Q1H MELE Stop: 05/18/19 13:24 Last Infusion: 05/18/19 12:54 Dose: Infused Documented by: Assessment/Plan All Active Problems DKA (diabetic ketoacidosis) (Acute) 1. DKA in the context of type 1 diabetes mellitus- glucose 399 on admission. Negative anion gap. Aggressive IVF. Q4 hour glucose monitoring with SSI. Serial BMP. Lispro 25 units subcu x1. 2. Tobacco dependence/occasional marijuana use-encourage cessation. 3. Recurrent buttocks abscesses/MRSA infection-currently stable. DVT prophylaxis-not indicated, low risk. This patient was seen by MARICHUY Kan under the supervision of Dr. Epps.
[2019-05-18 13:07] VITALS: BP 115/58; PULSE 69; RESP 16; O2SAT 100
[2019-05-18 13:31] LABS: Bedside Glucose 302 mg/dL (70-110)
[2019-05-18 14:03] VITALS: BP 99/52; PULSE 60; RESP 16; TEMP 36.3; O2SAT 96
[2019-05-18 14:08] VITALS: BMI 26.6
[2019-05-18] MEDS: 0.9% Normal Saline 1,000 ML 999 ML IV ×3 (14:37→16:41)
[2019-05-18 14:50] LABS: Bedside Glucose 259 mg/dL (70-110)
[2019-05-18] MEDS: Insulin Lispro 100 UNIT/ML INSULN.PEN 25 UNIT SC (15:05)
[2019-05-18 15:45] LABS: Anion Gap 9 (5-15); BUN 12 mg/dL (7-18); BUN/Creat Ratio 18.9 RATIO (10-20); Calcium,Total 7.8 mg/dL (8.5-10.1); Chloride 109 mmol/L (98-107); Creatinine, Serum 0.63 mg/dL (0.55-1.02); EST Glomerular Filtration Rate 122 mL/min (>60); Est Glom Filt Rate - Afr Amer 148 mL/min (>60); Glucose 239 mg/dL (74-106); Potassium 4.1 mmol/L (3.5-5.1); Sodium Level 139 mmol/L (136-145)
[2019-05-18 17:15] LABS: BUN 12 mg/dL (7-18); Creatinine, Serum 0.58 mg/dL (0.55-1.02); Estimated Creatinine Clearance 140.01 ml/min; Glucose 190 mg/dL (74-106)
[2019-05-18 17:16] LABS: Anion Gap 6 (5-15); BUN/Creat Ratio 20.8 RATIO (10-20); Chloride 114 mmol/L (98-107); EST Glomerular Filtration Rate 137 mL/min (>60); Est Glom Filt Rate - Afr Amer 165 mL/min (>60); Potassium 4.1 mmol/L (3.5-5.1); Sodium Level 140 mmol/L (136-145)
[2019-05-18 17:19] LABS: Hemoglobin A1c 12.4 % (4.2-6.3)
[2019-05-18 17:45] LABS: Bedside Glucose 154 mg/dL (70-110)
--- NOTE | 2019-05-18 17:52 | DCINST_ITS ---
- Discharge Diagnoses Current Active Problems: Current Active and Chronic Problems DKA (diabetic ketoacidosis) (Acute) You will use the following diet at home:: Calorie/Carbohydrate Controlled (specify 1200, 1400, etc) - 2200 santos Discharge Activity: Return to Normal Activity Weight Bearing Status: Full weight bearing Allergies/Adverse Reactions: Allergies azithromycin [From Zithromax] Adverse Reaction (Verified 05/18/19 11:07) Rash Medications to take at Discharge Insulin NPH/Reg 70/30 [Novolin 70/30] 26 units SC BIDAC #1 vial 05/18/19 The following prescriptions were given: Insulin NPH/Reg 70/30 [Novolin 70/30] 26 units SC BIDAC #1 vial Primary Care Physician: Care Physician,No Primary [Primary Care Provider] - Please follow up with your Primary Care Physician in: within next 2-3 weeks Test Results: Test results from this visit will be discussed in further detail at your follow- up appointment, if applicable.
--- NOTE | 2019-05-18 17:54 | DS.PCM_ITS ---
Discharge Date and Diagnosis - Problem List Patient Problems: Active and Suspected Problems DKA (diabetic ketoacidosis) (Acute) Date of Admission: 05/18/19 Date of Discharge: 05/18/19 - Primary Discharge Diagnosis Active and Suspected Problems DKA (diabetic ketoacidosis) (Acute) Poor compliance with medical regimen Nausea and vomiting-etiology unclear - Secondary Discharge Diagnosis Chronic Problems Type 1 diabetes mellitus (Chronic) MRSA (methicillin resistant Staphylococcus aureus) infection (Chronic) Hospital Course and Treatment Imaging Results: 05/18/19 11:22 Chest PA and Lateral [RAD] Stat Operations: None Procedures: None Summary of Care Provided: The patient is a 24 year old F seen in the emergency room at [facility] with a chief complaint of left-sided abdominal pain with nausea and vomiting. Lab work was obtained in the emergency room showed the patient's blood sugar be 399, her anion gap was not abnormal, she did have small amounts of acetone in her bloodstream, venous blood gas showed a pH of 7.22. Patient was given IV fluids in the emergency room and an insulin drip was started, I had a discussion with the emergency room physician and felt that the patient could be treated on PCU with vigorous fluid administration and subcu insulin administration, patient was admitted to PCU and she was given subcu Humalog, vigorous IV fluids were administered, and her blood sugars were monitored. Several hours later, her blood sugar was 190 and the patient was asymptomatic, I felt it safe for the patient to be discharged home and the patient requested that she be discharged home. I did obtain an hemoglobin A1c which was elevated at 12.4, I had a brief discussion with the patient about her type 1 diabetes-patient did not know what an A1c was and what the significance of this number was. I recommended the patient find a primary care physician as soon as possible, she has been in [place] for over 2 years and has not seen a primary care physician. On examination she appeared in good health and spirits. Vital signs as documented. Skin warm and dry and without overt rashes. Neck without JVD. Lungs clear. Heart exam notable for regular rhythm, normal sounds and absence of murmurs, rubs or gallops. Abdomen unremarkable and without evidence of organomegaly, masses, or abdominal aortic enlargement. Extremities nonedematous. Neuro: Cranial nerves II through XII are grossly intact, no focal motor d eficits were noted, sensation to light touch and pinprick is intact. Psych: Patient is alert and oriented x3, she does not appear anxious or depressed Patient was discharged home in stable condition on 05/18/2019. Patient Problems: Active and Suspected Problems DKA (diabetic ketoacidosis) (Acute) - Physical Exam Vitals/I&O's: Vital Signs Temp Pulse Resp BP Pulse Ox 97.4 F L 60 16 99/52 L 96 05/18/19 14:03 05/18/19 14:03 05/18/19 14:03 05/18/19 14:03 05/18/19 14:03 Oxygen Delivery Method Room Air Weight: 76.929 kg Body Mass Index (BMI) 26.5 Finger Stick Blood Glucose 302 Intake and Output for Last 24 Hours 05/16/19 05/17/19 05/18/19 23:59 23:59 23:59 Intake Total 4000 / 4000 Balance 4000 / 4000 Laboratory Results 05/18/19 11:20: WBC 10.6, RBC 5.41 H, Hgb 15.7 H, Hct 48.8 H, MCV 90.2, MCH 29.0, MCHC 32.2, RDW Std Deviation 43.3, RDW Coeff of Raymundo 13.1, Plt Count 328, MPV 10.7, Immature Gran % (Auto) 0.700, Neut % (Auto) 77.7 H, Lymph % (Auto) 15.4 L, [place] % (Auto) 4.0, Eos % (Auto) 1.4, Baso % (Auto) 0.8, Absolute Neuts (auto) 8.3 H, Absolute Lymphs (auto) 1.64, Nucleated RBC % 0 05/18/19 11:20: Sodium 135 L, Potassium 4.4, Chloride 102, Carbon Dioxide 19.0 L , Anion Gap 14, BUN 16, Creatinine 1.02, Estim Creat Clear Calc 82.70, Est GFR (MDRD) Af Amer 86, Est GFR (MDRD) Non-Af 71, BUN/Creatinine Ratio 15.7, Glucose 399 H, Calcium 9.0 05/18/19 11:20: Acetone Level SMALL H 05/18/19 11:20: Urine Test Negative 05/18/19 11:20: Urine Color Yellow, Urine Clarity Clear, Urine pH 5.0, Ur Specific [place] 1.020, Urine Protein 30 H, Urine Glucose (UA) 1000 H, Urine Ketones 150 H, Urine Occult Blood Negative, Urine Nitrite Negative, Urine Bilirubin Negative, Urine Urobilinogen Normal, Ur Leukocyte Esterase Negative, Urine RBC 0 SEEN, Urine WBC 0 SEEN, Ur Squamous Epith Cells 0-5 SEEN, Urine Bacteria 0 SEEN, Urine Mucus 0 SEEN 05/18/19 11:20: Hemoglobin A1c 12.4 H 05/18/19 11:30: POC Glucose 399 H 05/18/19 11:53: Specimen Type JONNY, VBG pH 7.22 L, VBG pO2 39, VBG O2 Sat (Calc) 63, VBG O2 Content 18 L, VBG Base Excess -11 L, POC Mix VBG pCO2 Pt Tmp 40.5 L, O2 Delivery Device Room Air, Blood Gas Notified Whom ED , Blood Gas Notified Time 1151 05/18/19 13:28: POC Glucose 302 H 05/18/19 14:39: POC Glucose 259 H 05/18/19 15:00: Sodium 139, Potassium 4.1, Chloride 109 H, Carbon Dioxide 21.0, Anion Gap 9, BUN 12, Creatinine 0.63, Estim Creat Clear Calc 128.90, Est GFR (MDRD) Af Amer 148, Est GFR (MDRD) Non-Af 122, BUN/Creatinine Ratio 18.9, Glucose 239 H, Calcium 7.8 L 05/18/19 16:45: Sodium 140, Potassium 4.1, Chloride 114 H, Carbon Dioxide 20.0 L , Anion Gap 6, BUN 12, Creatinine 0.58, Estim Creat Clear Calc 140.01, Est GFR (MDRD) Af Amer 165, Est GFR (MDRD) Non-Af 137, BUN/Creatinine Ratio 20.8 H, Glucose 190 H, Calcium 8.0 L 05/18/19 17:38: POC Glucose 154 H Current Medications Acetaminophen (Tylenol) 650 mg PO Q6H PRN PRN PRN Reason: Pain Score 1-3/Temp > 100.7 F Glucagon () 1 mg IM .X1 PRN PRN Reason: Hypoglycemia Sodium Chloride () 1,000 mls @ 500 mls/hr IV .Q2H MELE Dextrose (Dextrose 10%-Water) 250 mls @ 999 mls/hr IV .Q16M PRN; Protocol PRN Reason: HYPOGLYCEMIA Insulin Human Lispro (Humalog Kwikpen (Bkc)) 0 unit SC Q4 MELE; Protocol Ondansetron HCl (Zofran) 4 mg IV Q8H PRN PRN PRN Reason: NAUSEA/VOMITING Sodium Chloride () 10 - 40 ml IV UD PRN PRN Reason: SALINE FLUSH Discharge Diet: 2200 Calorie Control Diet Discharge Activity: Return to Normal Activity Weight Bearing Status: Full weight bearing Home Medications: Medications to take at Discharge Insulin NPH/Reg 70/30 [Novolin 70/30] 26 units SUBCUT BIDAC #1 vial 05/18/19 Following Prescrptions Were Given to Patient: Insulin NPH/Reg 70/30 [Novolin 70/30] 26 units SUBCUT BIDAC #1 vial Primary Care Physician: Care Physician,No Primary [Primary Care Provider] - Please follow up with your Primary Care Physician in: within next 2-3 weeks Disposition: Home Minutes spent on discharge:: 30 Patient Condition:: Stable Medical Necessity - Tobacco Use Smoking Status: Current every day smoker Tobacco Use: Cigarettes Meaningful Use Info Meaningful Use Diagnoses (Choose all that apply): None applicable Code Visit OBSV E&M: 63778 Observ/hosp same date L3
[2019-05-18 18:30] VITALS: BP 120/56; PULSE 72; RESP 16; TEMP 36.6; O2SAT 99
== END 2019-05-18 18:45 | disposition home or self-care (01) ==
LOC: ED 12:19 → PCU 05-19 07:44
PROVIDERS: Admitting Provider Internal Medicine; Emergency Provider Emergency Medicine; Referring Provider Internal Medicine; Visit Provider Internal Medicine
DX: E10.10 Type 1 diabetes mellitus with ketoacidosis without coma (principal); Z79.4 Long term (current) use of insulin; Z86.14 Personal history of Methicillin resistant Staphylococcus aureus infection; F17.210 Nicotine dependence, cigarettes, uncomplicated
CPT/HCPCS: 36415; 71046; 80048; 81001; 81025; 82009; 82803; 82962; 83036; 85025; 96361; 96374; 99218; 99285; 99406; J7030; G0378; J2405

== ENCOUNTER 2019-07-03 17:21 | Outpatient (RCR) | payer BC, SELFPAY ==
[2019-06-10 22:52] VITALS: BMI 26.5
== END 2019-07-03 23:59 | disposition home or self-care (01) ==
LOC: DC 17:21
PROVIDERS: PCP Internal Medicine; Visit Provider Internal Medicine
DX: Z71.3 Dietary counseling and surveillance (principal); E10.9 Type 1 diabetes mellitus without complications
CPT/HCPCS: G0108

== ENCOUNTER 2020-06-01 15:52 | Emergency (ER) | payer SELFPAY ==
[2019-12-10 08:12] VITALS: BMI 26.5
[2020-06-01 15:53] VITALS: BP 122/68; PULSE 83; RESP 16; TEMP 36.1; O2SAT 99; BMI 30.5
--- NOTE | 2020-06-01 16:05 | ED.VIS.GEN ---
History of Present Illness Chief Complaint: Lower Extremity Injury Narrative: This patient is a 25-year-old female who presents with left foot pain. This before presentation here she was walking down steps, she twisted her foot and felt a pop. She had immediate severe pain on the outside of her left foot. She did not actually fall no other injuries no head injury chest pain back pain injury to other extremities. She otherwise denies any recent illness. No weakness or paresthesias. Past Medical History - Allergies and Home Meds Allergies/Adverse Reactions: Allergies azithromycin [From Zithromax] Adverse Reaction (Verified 06/01/20 15:56) Rash Primary Care Physician: Sameera Cherry MD [Primary Care Provider] - Past Medical History: - - Insulin-dependent diabetes Surgical History: - Smoking Status: Current every day smoker - Family History Maternal Family History: Family History (Last Reviewed 12/10/19 @ 08:11 by Katelyn Lee) Other Anxiety Arthritis Asthma Blood clot in vein Cancer Depression Diabetes High cholesterol Hypertension Mental disorder Psychiatric care Skin cancer Thyroid disorder Uterine cancer Family History: Reports: - - Mental issues Paternal Family History: Family History (Last Reviewed 12/10/19 @ 08:11 by Katelyn Lee) Other Anxiety Arthritis Asthma Blood clot in vein Cancer Depression Diabetes High cholesterol Hypertension Mental disorder Psychiatric care Skin cancer Thyroid disorder Uterine cancer Family History: Reports: - - secondary to lung cancer Review of Systems All systems negative except as indicated General: Denies: Fever Eyes: Denies: Visual changes - bilaterally Cardiovascular: Denies: Chest pain Respiratory: Denies: Dyspnea Gastrointestinal: Denies: Nausea, Vomiting, Diarrhea Musculoskeletal: Reports: Extremity Pain Skin: Denies: Rash Neurological: Denies: Headache Physical Exam Vital Signs/Narrative: Vital Signs Temp Pulse Resp BP Pulse Ox 06/01/20 15:53 97.0 F L 83 16 122/68 H 99 Inital Vital Signs reviewed: Yes General: Well nourished Head: Normocephalic Eyes: EOMI ENT: Moist mucous membranes Cardiovascular: Regular rate Respiratory: No distress Extremities: - - Patient does have tenderness at the base of the fifth metatarsal. She has an easily palpable dorsalis pedis pulse she has brisk capillary refill normal sensation normal motor function no ankle tenderness no tenderness of the proximal fibula no knee tenderness, no deformity Skin: Normal color Neurological: Alert Psychological: Normal affect Diagnostic/Tx/Re-eval - Medical Decision Making Patient was given a [place] for pain. 3 view left foot x-ray was obtained. On my interpretation the shows no acute fracture. She was provided with a prescription for short course of [place] for acute pain control and also advised on supportive care such as rest, ice, elevation. She was given a postop shoe. Patient discharged to follow-up as an outpatient. She understands to return for new or worsening symptoms. ED Disposition - Plan for ED Patient: Disposition: Home or Assisted Living Diagnosis: Sprain of left foot Instructions: ED Foot Sprain Prescriptions: Hydrocodone Bitart/Apap 5-325 [[place] 5MG-325MG] 1 tab PO Q6H PRN PRN 3 Days #10 tab PRN Reason: Pain Prescription Printed Referrals: Sameera Cherry MD [Primary Care Provider] -
--- NOTE | 2020-06-01 16:10 | RAD_ITS ---
STUDY: X-RAY - LEFT FOOT CLINICAL: Female, 25 years old. tripped and twisted foot coming down the steps. left foot pain along lateral side. TECHNIQUE: 3 view(s) of the foot. COMPARISON: None. FINDINGS: Normal talus, calcaneus, and tarsal bones. Normal visualized subtalar, talonavicular, calcaneocuboid, tarsal and tarsometatarsal articulations. Normal metatarsi. Normal joints. No fracture or displaced bony fragment is seen. The soft tissue structures are unremarkable. RAD/Foot min 3 Views IMPRESSION: Normal x-ray examination of the foot. Electronically Signed: Tru Hancock MD at 17:01 EST , Service support ,
[2020-06-01] MEDS: HYDROcodone Bitartrate/Apap 5/325 Tablet PO (16:32)
== END 2020-06-01 17:39 | disposition home or self-care (01) ==
PROVIDERS: Emergency Provider Emergency Medicine; PCP Internal Medicine
DX: S93.602A Unspecified sprain of left foot, initial encounter (principal); X50.1XXA Overexertion from prolonged static or awkward postures, initial encounter; Y93.01 Activity, walking, marching and hiking; Y92.9 Unspecified place or not applicable; Y99.9 Unspecified external cause status; F17.200 Nicotine dependence, unspecified, uncomplicated; E11.9 Type 2 diabetes mellitus without complications; Z79.4 Long term (current) use of insulin
CPT/HCPCS: 73630; 99283

== ENCOUNTER 2020-08-18 09:51 | Emergency (ER) | payer SELFPAY ==
[2020-08-18 09:54] VITALS: BP 126/67; PULSE 79; RESP 17; TEMP 36.9; O2SAT 98; BMI 32.0
[2020-08-18 10:10] LABS: Bedside Glucose 466 mg/dL (70-110)
--- NOTE | 2020-08-18 10:17 | ED.DCSUM_ITS ---
- ER Visit Summary Date of Service: 08/18/20 Chief Complaint: High blood sugar History of Present Illness: The patient is a [address] Cherry and Dr. Salas. She has a history of type 1 diabetes. She lost her insurance in April and could no longer afford her insulin. At that time she was changed to Novolin R 6 units 3 times daily with meals and Novolin N 20 units in the morning. Prior to this she was on glargine 26 units daily and lispro 10 units 3 times daily with meals. Patient reports that her blood sugars usually 300s in the morning. However, throughout the day it runs 89?1 50. States that her blood sugar this morning was 537. She denies any change in her typical routine. Reports that she had breakfast sandwich and coffee without sugar and sugar-free creamer at approximately 530. She took her normal dose of insulin. Review of systems: General: No fever, chills, cold sweats. Cardiovascular: No chest pain, palpitations. Respiratory: No cough, shortness of breath, dyspnea on exertion. Gastrointestinal: No abdominal pain, nausea, vomiting, diarrhea, melena, or hematochezia. Genitourinary: No dysuria, hematuria. Skin: No rash. Neuro: No headache, numbness, weakness. Physical Examination: Vitals: Stable. Afebrile. General: Well-nourished and well-developed. Head: Normocephalic atraumatic. Neck: Supple, no lymphadenopathy. No JVD. Nontender. Cardiovascular: Regular rate and rhythm. No murmurs. Respiratory: No respiratory distress. Clear to auscultation bilaterally. Abdominal: Soft, nontender, nondistended, normal bowel sounds. No guarding, rebound, or peritoneal signs. Back: Nontender. Extremities: Nontender, no edema. Skin: Normal color, no rash. Neurologic: Alert and oriented ?3. Cranial nerves II through XII are intact. Normal strength and sensation. Psych: Normal affect. Test Results: Accu-Chek is 466. CBC shows a white count of 14.8 with 82 segmented neutrophils and 11 lymphocytes. Chem-7 shows a sodium 131, glucose of 470, BUN of 19. LFTs normal. UA is negative. test is negative. ABG shows a pH of 7.35. Serum ketones are negative. Hemoglobin A1c is 8.0. Clinical Impression(s) from Imaging Studies Chest X-Ray 08/18/20 10:53 IMPRESSION: Normal x-ray examination of the chest. Electronically Signed: Dalton Naranjo MD at 11:44 EDT Tel , Service support , Emergency Department Course and Treatment: Patient had an IV placed. She was given 2 L of normal saline. She is resting comfortably. She is not nauseated. Repeat Accu-Chek was just over 300. She is given 8 units of lispro subcu. She feels well would like to go home. Treatment Plan: Patient actually has an appointment to see Dr. Salas tomorrow. She will be discharged with instructions to follow-up in his directed. Continue her insulin as she was previously taking it tonight. Disposition: To home in improved and stable condition. Impression: 1. Hyperglycemia. 2. Insulin-dependent IVs mellitus. This note was generated with [employer] dictation software. It may contain incorrect words, spelling, and punctuation that were not noted in review of the chart prior to signing ED Disposition - Plan for ED Patient: Disposition: Home or Assisted Living Instructions: ED Diabetic Hyperglycemia Referrals: Rob Salas MD [STAFF PHYSICIAN] - 1 Day
[2020-08-18] MEDS: 0.9% Normal Saline 1,000 ML 999 ML IV (10:26)
[2020-08-18 10:30] LABS: Absolute Lymphocyte Count 1.65 X10^3/uL (0.83-4.51); Absolute Neutrophil Count 12.1 X10^3/uL (2.0-7.7); Basophil# 0.09 X10^3/uL; Basophil% 0.6 % (0-1); Eosinophil# 0.25 X10^3/uL; Eosinophils% 1.7 % (0-5); Hematocrit 41.8 % (37-47); Hemoglobin 13.4 g/dL (12.0-15.0); Lymphocyte # 1.65 X10^3/ul (4.0); Lymphocyte % 11.2 % (19-41); Mean Corp Hgb Conc 32.1 g/dL (32-36); Mean Corpuscular Hgb 29.5 pg (27.0-32.0); Mean Corpuscular Volume 92.1 fL (81-99); Mean Platelet Vol. 10.5 fl (6.2-12.0); Monocyte# 0.61 X10^3/uL; Monocyte% 4.1 % (0-10); NRBC Flagged by Analyzer 0 % (0-5); Neutrophil # 12.06 X10^3/uL (2.7-7.7); Neutrophil % 81.8 % (47-70); Platelet Count 295 K/mm3 (150-450); RBC Distribution Width CV 14.6 % (11.6-14.6); RBC Distribution Width SD 49.2 fl (35.1-43.9); Red Blood Count 4.54 M/mm3 (4.2-5.4); White Blood Count 14.8 K/mm3 (4.4-11.0)
[2020-08-18 10:37] LABS: Bacteria 0 SEEN /hpf (None Seen); Mucous, Urine 0 SEEN /hpf (<or=2+); Red Blood Cells-Urine 0 SEEN /hpf (0-5); White Blood Cells 0 SEEN /hpf (0-5)
[2020-08-18 10:39] LABS: Color, Urine Straw (Yellow); Glucose, Dipstick 1000 mg/dl (Normal); Leukocyte Esterase-Dipstick Negative /ul (Negative); Nitrite-Dipstick Negative (Negative); Occult Blood-Urine 25 /ul (Negative); Protein-Dipstick Negative (Negative); Urine Bilirubin Dipstick Negative (Negative); Urine Clarity Clear (Clear); Urine Urobilinogen Normal (Normal)
[2020-08-18 10:41] LABS: Blood Gas Specimen Type VEN; VBG BASE EXCESS -3 mmol/L (-1.0-3.5); VBG Bicarbonate 22 mmol/L (22-26); VBG PO2 36 mmHg (25-40); VBG SO2 65 % (50-70); VBG TCO2 24 mmol/L (23-33); VBG pCO2 40.8 mmHg (41-51); VBG pH 7.35 (7.32-7.42)
[2020-08-18 10:44] LABS: Ketone-Dipstick 150 mg/dl (Negative)
[2020-08-18 10:46] LABS: Squamous Epithelial Cells - UA 0-5 SEEN /hpf (5-10)
[2020-08-18 10:51] LABS: AST(SGOT) 18 U/L (15-37); Alanine Aminotransfer ALT/SGPT 23 U/L (13-56); Albumin, Serum 3.7 g/dL (3.2-5.0); Alkaline Phosphatase 81 U/L (45-117); Anion Gap 8 (5-15); BUN 19 mg/dL (7-18); BUN/Creat Ratio 21.4 RATIO (10-20); Chloride 101 mmol/L (98-107); Creatinine, Serum 0.89 mg/dL (0.55-1.02); EST Glomerular Filtration Rate 82 mL/min (>60); Est Glom Filt Rate - Afr Amer 99 mL/min (>60); Estimated Creatinine Clearance 93.97 ml/min; Globulin 3.7 g/dL (2.2-4.2); Glucose 470 mg/dL (74-106); Potassium 4.9 mmol/L (3.5-5.1); Protein, Total 7.4 g/dL (6.4-8.2); Sodium Level 131 mmol/L (136-145)
--- NOTE | 2020-08-18 10:53 | RAD_ITS ---
STUDY: X-RAY CHEST REASON FOR EXAM: Female, 25 years old. HYperglycemia TECHNIQUE: Single AP portable view of the chest. COMPARISON: None. FINDINGS: The lungs are clear and expanded. There is no demonstrated pleural abnormality. Normal size heart. Normal mediastinum and curly. Normal visualized pulmonary arteries. Normal visualized aortic arch and descending thoracic aorta. Normal visualized thoracic spine. Normal visualized ribs, clavicles, and shoulders. There is no demonstrated abnormality of the visualized soft tissue structures of the upper abdomen. RAD/Chest 1 View (Portable) IMPRESSION: Normal x-ray examination of the chest. Electronically Signed: Dalton Naranjo MD at 11:44 EDT Tel , Service support ,
[2020-08-18 11:02] LABS: Internal QC Validated? YES +Cl - CLEAR BKGD; Pregnancy, Serum, hCG Quali. NEGATIVE Negative
--- NOTE | 2020-08-18 12:36 | CM.ED ---
Social Work Consult: Resources/Prescription assistance. Referral source: Nursing staff Collaborating with Dr. Perez prior to meeting with patient. Dr. Perez wondering if patient would benefit from insulin adjustment, meeting with patient doctor to discuss possible options. Met with patient in room. Introduced self and social service assistant role. Patient agreeable to speak with this social service assistant. This social service assistant broached topic of prescription assistance for patient. Patient reports to currently be paying $50/monthly for insulin and to be able to afford this but concerned that patient insulin is working for patient. Patient reports to have changed insulin when patient lost insurance a few months ago. Patient reports to have changed jobs and is working/hoping to be getting insurance through new [employer], D&S in a 2 months. Patient reports to not be following up with doctors due to having no insurance. This social service assistant facilitating conversation with patient about pros and cons of patient health when not following up with patient doctors. Patient recognizing cost of ED visit as an expense as well. Patient typically follows with Dr. Salas and Dr. Cherry in the community. Patient agreeable to this social service assistant setting up appointment with Dr. Salas and inquiring about self pay cost. Patient states things are not working on my own. Patient denies any other needs or concerns in the community. This social service assistant also provided patient with prescription assistance information (needymeds and prescriptionhope). Telephone call to Dr. Banda office, [place]. Appointment able to be set up for tomorrow at 1:30p (08/19/2020 @ 1:30). Appointment reminder provided to patient. Dr. Perez updated on above information and agreeable with plan. Chalino PAYAN, DAINA.
[2020-08-18 12:39] VITALS: BP 121/60; PULSE 79; RESP 12; O2SAT 100
[2020-08-18 13:21] LABS: Bedside Glucose 327 mg/dL (70-110)
[2020-08-18] MEDS: Insulin Lispro 100 UNIT/ML INSULN.PEN 8 UNIT SC (14:18)
[2020-08-18 14:20] VITALS: BP 139/56; PULSE 92; PULSE 93; RESP 16; RESP 17; O2SAT 100
== END 2020-08-18 14:21 | disposition home or self-care (01) ==
PROVIDERS: Emergency Provider Emergency Medicine; PCP Internal Medicine
DX: E10.65 Type 1 diabetes mellitus with hyperglycemia (principal); Z79.4 Long term (current) use of insulin; Z72.0 Tobacco use
CPT/HCPCS: 71045; 80053; 81001; 82009; 82803; 82962; 83036; 83735; 84100; 84703; 85025; 96360; 96361; 99284; J7030

== ENCOUNTER 2021-04-14 11:04 | Emergency (ER) | payer OTHER, SELFPAY ==
[2021-04-14 11:04] VITALS: BP 118/79; PULSE 80; RESP 16; TEMP 36.1; O2SAT 99; BMI 30.1
[2021-04-14 12:08] LABS: Mucous, Urine 0 SEEN /hpf (<or=2+); Red Blood Cells-Urine 0 SEEN /hpf (0-5); White Blood Cells 0 SEEN /hpf (0-5)
[2021-04-14 12:11] LABS: Color, Urine Yellow (Yellow); Glucose, Dipstick Normal (Normal); Ketone-Dipstick 50 mg/dl (Negative); Leukocyte Esterase-Dipstick Negative /ul (Negative); Nitrite-Dipstick Negative (Negative); Occult Blood-Urine Negative /ul (Negative); Protein-Dipstick 15 mg/dl (Negative); Specific Gravity, Urine 1.015 (1.002-1.030); Urine Bilirubin Dipstick Negative (Negative); Urine Clarity Sl. Cloudy (Clear); Urine Urobilinogen Normal (Normal)
[2021-04-14 12:13] LABS: Absolute Lymphocyte Count 2.35 X10^3/uL (0.83-4.51); Absolute Neutrophil Count 5.5 X10^3/uL (2.0-7.7); Basophil# 0.06 X10^3/uL; Basophil% 0.7 % (0-1); Eosinophil# 0.24 X10^3/uL; Eosinophils% 2.8 % (0-5); Hematocrit 44.9 % (37-47); Hemoglobin 14.9 g/dL (12.0-15.0); Lymphocyte # 2.35 X10^3/ul (0.83-4.51); Mean Corp Hgb Conc 33.2 g/dL (32-36); Mean Corpuscular Hgb 30.3 pg (27.0-32.0); Mean Corpuscular Volume 91.3 fL (81-99); Monocyte# 0.57 X10^3/uL; Monocyte% 6.5 % (0-10); NRBC Flagged by Analyzer 0 % (0-5); Neutrophil # 5.47 X10^3/uL (2.7-7.7); Neutrophil % 62.8 % (47-70); Platelet Count 297 K/mm3 (150-450); RBC Distribution Width CV 14.6 % (11.6-14.6); RBC Distribution Width SD 49.2 fl (35.1-43.9); Red Blood Count 4.92 M/mm3 (4.2-5.4); White Blood Count 8.7 K/mm3 (4.4-11.0)
[2021-04-14 12:19] LABS: Bacteria 1+ /hpf (None Seen); Squamous Epithelial Cells - UA 0-5 SEEN /hpf (5-10)
[2021-04-14 12:23] LABS: Anion Gap 5 (5-15); BUN 17 mg/dL (7-18); BUN/Creat Ratio 25.8 RATIO (10-20); Calcium,Total 9.1 mg/dL (8.5-10.1); Chloride 105 mmol/L (98-107); Creatinine, Serum 0.66 mg/dL (0.55-1.02); EST Glomerular Filtration Rate 115 mL/min (>60); Est Glom Filt Rate - Afr Amer 139 mL/min (>60); Estimated Creatinine Clearance 126.71 ml/min; Glucose 117 mg/dL (74-106); Potassium 4.2 mmol/L (3.5-5.1); Sodium Level 139 mmol/L (136-145)
[2021-04-14 13:02] LABS: Internal QC Validated? YES +Cl - CLEAR BKGD; Pregnancy, Serum, hCG Quali. NEGATIVE Negative
--- NOTE | 2021-04-14 13:51 | ED.RN ---
PT STATES SHE IS LEAVING, WILL RETURN TO URGENT CARE, HAD LEFT TO COME HERE BECAUSE THEY HAD AN HOUR WAIT.
== END 2021-04-14 13:51 | disposition left against medical advice (07) ==
LOC: ED 15:01
PROVIDERS: PCP Internal Medicine
DX: Z53.21 Procedure and treatment not carried out due to patient leaving prior to being seen by health care provider (principal)
CPT/HCPCS: 80048; 81001; 84703; 85025; A4216

== ENCOUNTER 2021-07-05 17:00 | Outpatient (CLI) | payer OTHER, SELFPAY ==
[2021-07-07 22:07] LABS: Chlamydia By Nucleic Acid AMP Negative (Negative)
[2021-07-08 16:27] LABS: Gonococcus By Nucleic Acid AMP Negative (Negative)
[2021-07-08 17:20] LABS: HPV Reflexed? NOT INDICATED
== END 2021-07-05 23:59 | disposition home or self-care (01) ==
LOC: LABSPEC 17:01
PROVIDERS: PCP Internal Medicine; Visit Provider Obstetrics & Gynecology
DX: Z12.4 Encounter for screening for malignant neoplasm of cervix (principal); Z11.3 Encounter for screening for infections with a predominantly sexual mode of transmission
CPT/HCPCS: 87491; 87591; 88175; G0145

== ENCOUNTER 2021-09-17 21:20 | Emergency (ER) | payer OTHER, SELFPAY ==
[2021-09-17 21:21] VITALS: BP 131/84; PULSE 94; RESP 18; TEMP 36.1; O2SAT 98; BMI 29.7
--- NOTE | 2021-09-17 21:37 | NURSING ---
CALLED [facility]IS[facility] AT [address] GRAY BEFORE DOING ANY LABS
--- NOTE | 2021-09-17 21:37 | EX.ED.VIS.PS ---
HPI HPI - Psych History of Present Illness Chief Complaint: Mental Health Narrative Narrative: 26-year-old female with history of bipolar disorder currently not medicated presenting with depression. She states this is the anniversary month of when her dad 5 years ago. She been struggling with this this month. She states she made an appointment with [facility] for psychiatric care about 4 months ago. She states that the appointment was supposed to be yesterday and an hour before the appointment they canceled this. They state they need to reschedule. She states she was transferred and was on hold and then nobody answered. She attempted to call back and nobody answered the phone. Patient has been doing some cutting behavior on the right leg on her thigh because she states she wants to feel something. She denies suicidality or homicidality. She states her blood sugar was checked prior to coming and was just a little over 200. She states physically she is felt well. [facility] Medical History Abdominal pain Asthma Diabetes insipidus Heart murmur Heart valve problem Tonsillectomy planned Home Medications blood sugar diagnostic #150 ea 11/27/19 [Rx Last Taken Unknown] pen needle, diabetic 32 gauge x 532 #120 ea 11/27/19 [Rx Last Taken Unknown] insulin NPH isoph U-100 human 20 unit SQ BREAKFAST 08/18/20 [History Last Taken 08/18/20] insulin regular human 6 unit SQ TIDCM 08/18/20 [History Last Taken 08/18/20] insulin NPH isoph U-100 human 100 unit/mL subcutaneous suspension 20 unit SC QAM 08/19/20 [History Last Taken Unknown] insulin regular human 100 unit/mL injection solution 6 unit SC TID ml 08/19/20 [History Last Taken Unknown] insulin glargine 100 unit/mL (3 mL) subcutaneous pen 40 unit SUBCUT QAM #15 ml 04/21/21 [Rx Last Taken Unknown] insulin lispro 100 unit/mL subcutaneous pen 15 unit SUBCUT TID #15 ml 04/21/21 [Rx Last Taken Unknown] pen needle, diabetic 32 gauge x 5/32 #150 ea 04/21/21 [Rx Last Taken Unknown] iud IMPLANT 08/19/21 [History Last Taken Unknown] Allergy/AdvReac Type Severity Reaction Status Date / Time azithromycin [From Zithromax] AdvReac Rash Verified 09/17/21 21:21 Family History Other Anxiety Arthritis Asthma Blood clot in vein Cancer Depression Diabetes High cholesterol Hypertension Mental disorder Psychiatric care Skin cancer Thyroid disorder Uterine cancer Surgical History History of placement of ear tubes Hx of heart surgery Hx of removal of cyst Social History Smoking Status: Current some day smoker tobacco type: cigarettes alcohol intake: never substance use type: does not use what type of physical activity do you participate in: none ROS ROS ED Constitutional Constitutional ED: Denies chills or fever(s) Eyes Eyes: Denies blurry vision or diplopia ENT ENT ED: Denies rhinorrhea or sore throat Cardiovascular Cardiovascular: Denies chest pain or palpitations Respiratory/Chest Respiratory/Chest: Denies cough or dyspnea Gastrointestinal Gastrointestinal: Denies abdominal pain, nausea or vomiting Genitourinary Genitourinary ED: Denies dysuria or hematuria Musculoskeletal Musculoskeletal: Denies arthralgias or myalgias Integumentary Reports other Details: Superficial abrasions to the right thigh anteriorly. Neurologic Neurologic: Denies headache(s) or weakness Psychiatric Psychiatric: Reports anxiety and depression; Denies suicidal ideation or suicidal thoughts Endocrine Endocrinology: Denies polydipsia or polyuria EXAM Physical Exam Const Vital Signs: 09/17/21 21:21 Temperature 96.9 F L Temperature Source Temporal Pulse Rate 94 Respiratory Rate 18 Blood Pressure 131/84 H Blood Pressure Mean 99 Pulse Ox 98 Oxygen Delivery Method Room Air Positive well nourished General Appearance ED: NAD HEENT normocephalic and atraumatic Eyes PERRL and EOMs intact bilaterally Resp normal respiratory effort and clear to auscultation bilaterally Cardio Rate: regular rate Rhythm: regular rhythm Neuro oriented x3 and CN's II-XII intact bilaterally Sensorium / Orientation: alert Psych mental status grossly normal, speech normal, activity/motor behavior normal, denies hallucinations, denies homicidal ideation and denies suicidal ideation Appearance: well kempt Attitude: calm Activity / Motor Behavior: appropriate eye contact Speech: normal speech Mood & Affect: sad and tearful Thought Process: No circumstantial, No incoherent, No disorganized, No confused, No confabulating, No flight of ideas and No illogical Thought Content: No suicidality, No homicidality, No delusion(s) and No hallucination(s) Attention / Concentration: attention grossly intact and concentration grossly intact Memory / Cognition: memory grossly intact and memory grossly impaired Skin Skin Narrative: Superficial excoriations over the proximal right thigh in a linear pattern that she has horizontal across the area. This approximately 3 cm in length and about 2 cm in width. No cellulitic change. MDM MDM MDM Narrative Medical decision making narrative: Patient feeling depressed as this is the anniversary month of her father's . She has been doing some cutting behavior so she can feel something. She states she does not have suicidal homicidal ideation. She states she does not want to . She states she is just a little bit depressed. She has no plan to hurt her self. She has been somewhat upset over the loss of follow-up as she was expecting to see somebody recently. I do not believe the patient needs inpatient therapy and I did discuss the patient with crisis. Crisis gave her resources and they think he is safe for discharge. Patient counseled that if she has new or worsening symptoms to return. Impression: 1. Depression 2. History of bipolar disorder Discharge Plan Triage Chief Complaint: Mental Health ED Provider: Ravinder Moore Dx/Rx/DC Orders Instructions: ED Bipolar Disorder Prescriptions: No Action (DME) pen needle, diabetic [BD Ultra-Fine Fariha Pen Needle] 32 gauge x 5/32 needle See Rx Instructions .ROUTE .MEDSUPPLY Qty: 120 RF: 6 (DME) blood sugar diagnostic Strip See Rx Instructions .ROUTE .MEDSUPPLY Qty: 150 RF: 12 Novolin R Regular U-100 Insuln 100 unit/mL solution 6 unit SC TID RF: 0 Novolin N NPH U-100 Insulin 100 unit/mL suspension 20 unit SC QAM RF: 0 iud implant RF: 0 insulin regular human 100 UNIT/ML solution 6 unit SQ TIDCM RF: 0 insulin NPH isoph U-100 human 100 UNIT/ML suspension 20 unit SQ BREAKFAST RF: 0 insulin glargine 100 unit/mL (3 mL) insulin pen 40 unit subcut QAM Qty: 15 RF: 5 insulin lispro 100 unit/mL insulin pen 15 unit subcut TID Qty: 15 RF: 6 (DME) pen needle, diabetic [BD Ultra-Fine Fariha Pen Needle] 32 gauge x 5/32 needle See Rx Instructions .ROUTE .MEDSUPPLY Qty: 150 RF: 5 Primary Care Provider: Sameera Cherry Referrals: Sameera Cherry MD [Primary Care Provider] - Disposition Disposition: Home, Self Care
[2021-09-17 22:43] VITALS: BP 115/79; PULSE 78; RESP 14; TEMP 36.9; O2SAT 99
== END 2021-09-17 23:05 | disposition home or self-care (01) ==
PROVIDERS: Emergency Provider Student in an Organized Health Care Education/Training Program; PCP Internal Medicine; Visit Provider Student in an Organized Health Care Education/Training Program
DX: F32.A Depression, unspecified (principal); R45.88 Nonsuicidal self-harm; S70.311A Abrasion, right thigh, initial encounter; X58.XXXA Exposure to other specified factors, initial encounter; F17.210 Nicotine dependence, cigarettes, uncomplicated
CPT/HCPCS: 99282

== ENCOUNTER → 2022-10-19 | Outpatient (CLI) | payer OTHER, SELFPAY ==
[2022-10-19 17:50] LABS: Hemoglobin A1c 7.6 % (3.8-5.6)
== END | disposition home or self-care (01) ==
LOC: LAB 15:43
PROVIDERS: PCP Internal Medicine; Referring Provider Internal Medicine Endocrinology, Diabetes & Metabolism; Visit Provider Internal Medicine Endocrinology, Diabetes & Metabolism
DX: E10.9 Type 1 diabetes mellitus without complications (principal)
CPT/HCPCS: 36415; 83036

== ENCOUNTER 2023-02-14 09:37 | Emergency (ER) | payer OTHER, SELFPAY ==
[2023-02-14 09:38] VITALS: BP 116/76; PULSE 94; RESP 16; TEMP 36.4; O2SAT 99; BMI 31.3
--- NOTE | 2023-02-14 09:54 | EDS_ITS ---
HPI History of Present Illness Chief Complaint: General Illness Narrative Narrative: 21-year-old female presenting with small area on the right side which was initially a pimple. She states she scratched at it and now it is red. It was bleeding is now stopped. In addition to this the patient states she is come down with what she believes is COVID. States that Sunday she had a headache and then she had an episode of epistaxis and the headache resolved. She now has runny nose, congestion, mild cough. She has not a fever but does feel like she started to get chills and body aches. No nausea or vomiting. She states she is a type I diabetic but her blood sugars have been around 200. She states this is normal for her. [facility] Medical History Abdominal pain Asthma Diabetes insipidus Heart murmur Heart valve problem Obesity Tonsillectomy planned Home Medications blood sugar diagnostic #150 ea 11/27/19 [Rx Last Taken Unknown] pen needle, diabetic 32 gauge x 5/32 (BD Ultra-Fine Fariha Pen Needle) #120 ea 11/27/19 [Rx Last Taken Unknown] iud implant 08/19/21 [History Last Taken Unknown] flash glucose scanning reader (FreeStyle Jennifer 2 [place]) #1 ea 10/24/22 [Rx Last Taken Unknown] flash glucose sensor (FreeStyle Jennifer 2 Sensor kit) #2 ea 10/24/22 [Rx Last Taken Unknown] insulin glargine 100 unit/mL (3 mL) subcutaneous pen 40 unit (0.4 mL) subcut QAM #15 mL 10/24/22 [Rx Last Taken Unknown] insulin lispro 100 unit/mL subcutaneous pen 15 unit (0.15 mL) subcut TID #15 mL 10/24/22 [Rx Last Taken Unknown] pen needle, diabetic 32 gauge x 5/32 (BD Ultra-Fine Fariha Pen Needle) #150 ea 10/24/22 [Rx Last Taken Unknown] mupirocin calcium 2 % topical cream 1 applic topical TID #15 grams 02/14/23 [Rx Last Taken Unknown] Allergy/AdvReac Type Severity Reaction Status Date / Time azithromycin [From Zithromax] AdvReac Rash Verified 02/14/23 09:40 Family History Other Anxiety Arthritis Asthma Blood clot in vein Cancer Depression Diabetes High cholesterol Hypertension Mental disorder Psychiatric care Skin cancer Thyroid disorder Uterine cancer Surgical History History of placement of ear tubes Hx of heart surgery Hx of removal of cyst Social History Smoking Status: Current some day smoker tobacco type: cigarettes alcohol intake: never substance use type: does not use what type of physical activity do you participate in: none ROS ROS ED Constitutional Constitutional ED: Denies chills or sweats Eyes Eyes: Denies blurry vision or change in vision ENT ENT ED: Reports rhinorrhea; Denies ear pain or sore throat Cardiovascular Cardiovascular: Denies chest pain, palpitations or racing heartbeat Respiratory/Chest Respiratory/Chest: Reports cough; Denies dyspnea or sputum Gastrointestinal Gastrointestinal: Denies abdominal pain, constipation, diarrhea, nausea or vomiting Genitourinary Genitourinary ED: Denies dysuria, hematuria or urinary frequency Musculoskeletal Musculoskeletal: Reports myalgias; Denies arthralgias or neck pain Integumentary Reports other Details: Abrasion to right flank ; Denies abscess, Abrasions or rash Neurologic Neurologic: Denies headache(s), paresthesias or weakness Psychiatric Psychiatric: Denies anxiety, depression, suicidal ideation or suicidal thoughts Endocrine Endocrinology: Denies polydipsia or polyuria EXAM Physical Exam Const Vital Signs: 02/14/23 09:38 02/14/23 10:04 Temperature 97.5 F L Temperature Source Temporal Pulse Rate 94 Respiratory Rate 16 Respiratory Effort Normal Non-Labored Respiratory Pattern Normal Blood Pressure 116/76 Blood Pressure Mean 89 Pulse Ox 99 Oxygen Delivery Method Room Air Positive well nourished General Appearance ED: NAD; Negative for pallor HEENT Reports moist mucous membranes Eyes PERRL and EOMs intact bilaterally Neck no lymphadenopathy Chest Wall inspection of chest normal Resp normal respiratory effort and clear to auscultation bilaterally Auscultation: Negative for rales, rhonchi or wheezes Cardio regular rate and regular rhythm GI normal to inspection, nondistended, normoactive bowel sounds Extremity normal to inspection General Extremety ED: Yes edema General Extremity: edema Neuro oriented x3 and CN's II-XII intact bilaterally Sensorium / Orientation: alert Motor Exam: strength 5/5 throughout Psych mental status grossly normal Skin Skin Narrative: Punctate area of erythema on the right flank. No active bleeding. No surrounding induration or erythema. Mildly tender to palpation General Skin Exam: Negative for jaundice or pallor MDM MDM MDM Narrative Medical decision making narrative: Superficial area of erythema on the right flank. She describes this as a pimple that she scratched that and now is red. Son actively bleeding. No surrounding induration or erythema. She also think she might of come down with COVID as she has chills, body aches, cough congestion. Patient will be tested for COVID and influenza. Rapid COVID and influenza are negative. Bactroban was applied to patient's wound. She given a prescription of this for home. She is given instructions on wound care and return precautions. Impression: 1. Folliculitis 2. Viral syndrome Discharge Plan Triage Chief Complaint: General Illness ED Provider: Ravinder Moore Dx/Rx/DC Orders Instructions: ED Folliculitis, ED Viral Syndrome (Adult) Prescriptions: New mupirocin calcium 2 % cream 1 applic topical TID Qty: 15 0RF No Action (DME) pen needle, diabetic [BD Ultra-Fine Fariha Pen Needle] 32 gauge x 5/32 needle See Rx Instructions .ROUTE .MEDSUPPLY Qty: 120 6RF Rx Instructions: 4 times daily (DME) blood sugar diagnostic Strip See Rx Instructions .ROUTE .MEDSUPPLY Qty: 150 12RF Rx Instructions: 4 times daily iud implant (DME) FreeStyle Jennifer 2 Sensor Kit See Rx Instructions .Route Qty: 2 12RF Rx Instructions: As directed (DME) FreeStyle Jennifer 2 [place] Misc See Rx Instructions .Route Qty: 1 0RF Rx Instructions: As directed insulin glargine 100 unit/mL (3 mL) insulin pen 40 unit subcut QAM Qty: 15 5RF insulin lispro 100 unit/mL insulin pen 15 unit subcut TID Qty: 15 6RF (DME) pen needle, diabetic [BD Ultra-Fine Fariha Pen Needle] 32 gauge x 5/32 needle See Rx Instructions .ROUTE .MEDSUPPLY Qty: 150 5RF Rx Instructions: 4 time daily Primary Care Provider: Care Physician,No Primary Referrals: Sameera Cherry MD [[facility] Staff - Active Staff] - Disposition Disposition: Home, Self Care
[2023-02-14] MEDS: Mupirocin Ointment 22gm Tube 1 APPLIC TOPICAL (10:43)
== END 2023-02-14 10:43 | disposition home or self-care (01) ==
PROVIDERS: Emergency Provider Student in an Organized Health Care Education/Training Program; Visit Provider Student in an Organized Health Care Education/Training Program
DX: L73.9 Follicular disorder, unspecified (principal); B34.9 Viral infection, unspecified; F17.210 Nicotine dependence, cigarettes, uncomplicated
CPT/HCPCS: 87428; 99282

== ENCOUNTER 2023-11-24 18:30 | Emergency (ER) | payer OTHER, SELFPAY ==
[2023-11-24 18:31] VITALS: BP 117/89; PULSE 86; RESP 22; TEMP 36.3; O2SAT 100; BMI 34.5
--- NOTE | 2023-11-24 18:47 | EX.ED.DYSGE1 ---
HPI History of Present Illness Chief Complaint: Dental Narrative Narrative: Patient is a 28-year-old female with history of type 1 diabetes who presents to the emergency department for ongoing pain to the right back molar. Patient states that has been fractured for some time, she has seen a dentist and was placed on amoxicillin. Patient blocks on 1 week ago. Patient states the pain is getting much worse now where she cannot eat, sleep. Patient does have an appointment in 2 days. Patient is hoping to get it taken out. She denies any other injury. [facility] Medical History (Updated 11/24/23 @ 18:51 by MARICHUY Torrez) Depression Obesity Abdominal pain Tonsillectomy planned Heart valve problem Heart murmur Diabetes insipidus Asthma Home Medications ?Medication ?Instructions ?Recorded ?Last Taken ?Type blood sugar diagnostic #150 ea 11/27/19 Unknown Rx pen needle, diabetic 32 gauge x #120 ea 11/27/19 Unknown Rx 5/32 (BD Ultra-Fine Fariha Pen Needle) iud implant 08/19/21 Unknown History flash glucose scanning reader #1 ea 10/24/22 Unknown Rx (FreeStyle Jennifer 2 [place]) mupirocin calcium 2 % topical cream 1 applic topical TID #15 grams 02/14/23 Unknown Rx flash glucose sensor (FreeStyle #2 ea 04/23/23 Unknown Rx Jennifer 2 Sensor kit) pen needle, diabetic 32 gauge x #150 ea 04/23/23 Unknown Rx 5/32 (BD Ultra-Fine Fariha Pen Needle) fluoxetine 20 mg capsule 20 mg PO DAILY #30 caps 08/27/23 Unknown Rx Tresiba FlexTouch U-100 100 20 unit (0.2 mL) subcut QHS #15 mL 08/28/23 Unknown Rx unit/mL (3 mL) subcutaneous pen (insulin degludec) insulin aspart 10 unit subcut TID #15 mL 08/28/23 Unknown Rx (niacinamide)(U-100) 100 unit/mL(3 mL) subcutaneous pen (Fiasp FlexTouch U-100 Insulin) oxycodone-acetaminophen 5 mg-325 1 tab PO Q8H PRN pain 3 days #8 11/24/23 Unknown Rx mg tablet (Percocet) tabs penicillin V potassium 500 mg 500 mg PO 4X/DAY #40 tabs 11/24/23 Unknown Rx tablet Allergy/AdvReac Type Severity Reaction Status Date / Time azithromycin (From Zithromax) AdvReac Rash Verified 11/24/23 18:31 Family History Other Anxiety Arthritis Asthma Blood clot in vein Cancer Depression Diabetes High cholesterol Hypertension Mental disorder Psychiatric care Skin cancer Thyroid disorder Uterine cancer Surgical History Hx of removal of cyst History of placement of ear tubes Hx of heart surgery Social History Smoking Status: Former smoker alcohol intake: never substance use type: does not use what type of physical activity do you participate in: none ROS ROS ED ROS Narrative Constitutional: Negative for fever, chills, weight loss, weakness Eyes: Negative for vision loss, vision change, double vision ENT: Negative for any sore throat, ear pain, congestion. Positive for pain to the right lower molar Cardiovascular: Negative for any chest pain, tightness, palpitations Respiratory: Negative for any cough, sputum production, hemoptysis, dyspnea, dyspnea on exertion, orthopnea Gastrointestinal: Negative for any abdominal pain, nausea, vomiting, diarrhea, constipation, blood in stool, blood in vomit : Negative for any urinary frequency, dysuria, retention, blood in urine Muscle skeletal: Negative for any neck pain, back pain Neurological: Negative for any headache, syncope, dizziness Skin: Negative for any rashes, itching, abrasions, lacerations Psychiatric: Negative for any depression, anxiety, stress, suicidal ideation, homicidal ideation Hematologic: Negative for any excessive bruising, easy bleeding EXAM Physical Exam Narrative Exam Narrative: Vital signs reviewed. Patient is tearful on initial evaluation. HEET: Head normocephalic atraumatic, TMs clear bilaterally. Posterior pharynx is clear, moist mucous membranes. Nares clear bilaterally. Patient has a fractured right back molar, there is some decay, there is no drainable abscess. There is some scar tissue around the gumline where the fractured area touches the inner cheek. Negative for any trismus. Neck: Supple with no lymphadenopathy or tenderness. No signs of meningismus. Cardiac: Regular rate and rhythm no murmurs gallops or rubs, equal peripheral pulses bilaterally. Respiratory: Lungs clear to auscultation bilaterally. No chest tenderness. Abdomen: Soft, nontender, nondistended. No abdominal bruit or pulsatile masses. No hepatosplenomegaly Extremities: No peripheral edema, no signs of gross trauma or deformity. Active full range of motion of all extremities. Neuro: Cranial nerves II through XII intact, no focal neurological deficits. Skin: Clean dry and intact with no rash, purpura, petechiae, vesicles or pustules. Backs/flank: No CVA tenderness, no midline spinal tenderness, no deformity. Psych: Normal mood and affect. No SI, HI or acute psychosis. Const Vital Signs: 11/24/23 18:31 Temperature 97.3 F L Temperature Source Temporal Pulse Rate 86 Respiratory Rate 22 H Blood Pressure 117/89 H Blood Pressure Mean 98 Pulse Ox 100 Oxygen Delivery Method Room Air [facility] MDM Treatment and Re-Evaluation :: Differential diagnosis includes however is not limited to: Dental abscess, irreversible pulpitis, dental caries Patient appears to be in mild distress secondary to pain to the right lower molar. Patient is tearful on my examination. Patient does have a fractured decaying tooth. Patient has no drainable abscess. Patient will be given Pen-Vee K, will also be given a short course of Percocet. Instructed to follow-up outpatient. I did look at the patient's OARRS, patient has not had any narcotic pain medicine prescribed to her in multiple years. The patient will take both the penicillin as well as the pain medicine and will follow-up Sunday. Instructed return for any worsening symptoms. Discharge Plan Triage Chief Complaint: Dental ED Midlevel Provider: Willem Ly ED Provider: Lyla Short Dx/Rx/DC Orders Clinical Impression: Dental caries, Pain in tooth Instructions: ED Dental Pain, ED Dental Cavity Prescriptions: New oxycodone-acetaminophen [Percocet] 5-325 mg tablet 1 tab PO Q8H PRN (Reason: pain) 3 Days Qty: 8 0RF penicillin V potassium 500 mg tablet 500 mg PO 4X/DAY Qty: 40 0RF No Action (DME) pen needle, diabetic [BD Ultra-Fine Fariha Pen Needle] 32 gauge x 5/32 needle See Rx Instructions .ROUTE .MEDSUPPLY Qty: 120 6RF Rx Instructions: 4 times daily (DME) blood sugar diagnostic Strip See Rx Instructions .ROUTE .MEDSUPPLY Qty: 150 12RF Rx Instructions: 4 times daily iud implant (DME) FreeStyle Jennifer 2 [place] Misc See Rx Instructions .Route Qty: 1 0RF Rx Instructions: As directed fluoxetine 20 mg capsule 20 mg PO DAILY Qty: 30 6RF mupirocin calcium 2 % cream 1 applic topical TID Qty: 15 0RF (DME) FreeStyle Jennifer 2 Sensor Kit See Rx Instructions .Route Qty: 2 12RF Rx Instructions: As directed (DME) pen needle, diabetic [BD Ultra-Fine Fariha Pen Needle] 32 gauge x 5/32 needle See Rx Instructions .ROUTE .MEDSUPPLY Qty: 150 5RF Rx Instructions: 4 time daily Fiasp FlexTouch U-100 Insulin 100 unit/mL (3 mL) insulin pen 10 unit subcut TID Qty: 15 6RF insulin degludec [Tresiba FlexTouch U-100] 100 unit/mL (3 mL) insulin pen 20 unit subcut QHS Qty: 15 6RF Primary Care Provider: Care Physician,No Primary Referrals: Care Physician,No Primary [Primary Care Provider] - Activity Restrictions/Additional Instructions: Keep your appointment on Sunday Print Language: Andorran Disposition Disposition: Home, Self Care
[2023-11-24] MEDS: Penicillin Vk 250 MG Tablet 500 MG PO (18:54)
[2023-11-24 18:58] VITALS: BP 125/63; PULSE 75; RESP 16; TEMP 36.3; O2SAT 99
[2023-11-24 19:01] LABS: Bedside Glucose 63 mg/dL (74-106)
== END 2023-11-24 18:59 | disposition home or self-care (01) ==
PROVIDERS: Emergency Provider Emergency Medicine; Visit Provider Emergency Medicine
DX: K02.9 Dental caries, unspecified (principal); E10.9 Type 1 diabetes mellitus without complications; Z87.891 Personal history of nicotine dependence
CPT/HCPCS: 82962; 99282

== ENCOUNTER 2023-11-27 01:08 | Emergency (ER) | payer OTHER, SELFPAY ==
[2023-11-27] VITALS (9 sets, daily range): BP systolic 110–149; BP diastolic 66–104; PULSE 90–128; RESP 12–20; TEMP 36.6–37.8; O2SAT 97–100; BMI 32.8
[2023-11-27] MEDS: MethylPREDNISolone 125 MG/2 ML Vial IV (01:33)
[2023-11-27] MEDS: DiphenhydrAMINE 50 MG/ML Syringe IV (01:33)
[2023-11-27] MEDS: Epi Pen (EQUIV) 0.3 MG Syringe IM (01:33)
[2023-11-27] MEDS: TRANEXAMIC ACID 1,000 MG/10 ML ML 1000 MG OPERA.SITE (01:39)
[2023-11-27] MEDS: Famotidine 200 MG/20 ML MDV 40 MG in 0.9% Normal Saline (Pres. free 6 ML 300 MG IV (01:39)
--- NOTE | 2023-11-27 05:26 | EDS_ITS ---
HPI History of Present Illness Chief Complaint: Allergic Reaction Informant: patient Narrative Narrative: Patient is a 28-year-old female with past medical history of type 1 diabetes. She is currently on Keflex and Flagyl secondary to a dental infection. She sta jeff she took both antibiotics this evening and then went to bed. She states she woke up with redness and swelling and sensation of tongue/lip swelling as well. She denies any new exposures other than the new antibiotics and secondary to the allergic reaction comes in for evaluation. [facility] Medical History (Updated 11/27/23 @ 06:[address] Bay Gamez, DO) Depression Obesity Abdominal pain Tonsillectomy planned Heart valve problem Heart murmur Diabetes insipidus Asthma Home Medications ?Medication ?Instructions ?Recorded ?Last Taken ?Type blood sugar diagnostic #150 ea 11/27/19 Unknown Rx pen needle, diabetic 32 gauge x #120 ea 11/27/19 Unknown Rx 5/32 (BD Ultra-Fine Fariha Pen Needle) flash glucose scanning reader #1 ea 10/24/22 Unknown Rx (FreeStyle Jennifer 2 [place]) flash glucose sensor (FreeStyle #2 ea 04/23/23 Unknown Rx Jennifer 2 Sensor kit) pen needle, diabetic 32 gauge x #150 ea 04/23/23 Unknown Rx 5/32 (BD Ultra-Fine Fariha Pen Needle) fluoxetine 20 mg capsule 20 mg PO DAILY #30 caps 08/27/23 Unknown Rx Tresiba FlexTouch U-100 100 20 unit (0.2 mL) subcut QHS #15 mL 08/28/23 Unknown Rx unit/mL (3 mL) subcutaneous pen (insulin degludec) insulin aspart 10 unit subcut TID #15 mL 08/28/23 Unknown Rx (niacinamide)(U-100) 100 unit/mL(3 mL) subcutaneous pen (Fiasp FlexTouch U-100 Insulin) cephalexin 500 mg capsule 500 mg PO BID 11/27/23 Unknown History clindamycin HCl 300 mg capsule 300 mg PO 4X/DAY 10 days #40 caps 11/27/23 Unknown Rx epinephrine 0.3 mg/0.3 mL 0.3 mg (0.3 mL) IM Q30M PRN 11/27/23 Unknown Rx injection, auto-injector anaphylaxis #2 ea famotidine 40 mg tablet (Pepcid) 40 mg PO DAILY 10 days #10 tabs 11/27/23 Unknown Rx metronidazole 500 mg tablet 500 mg PO BID 11/27/23 Unknown History prednisone 20 mg tablet 40 mg (2 x 20 mg) PO DAILY 5 days 11/27/23 Unknown Rx #10 tabs Allergy/AdvReac Type Severity Reaction Status Date / Time cephalexin (From Keflex) Allergy Intermediate Angioedema Verified 11/27/23 01:51 metronidazole (From Flagyl) Allergy Intermediate Angioedema Verified 11/27/23 01:51 azithromycin (From Zithromax) AdvReac Rash Verified 11/27/23 01:51 Family History Other Anxiety Arthritis Asthma Blood clot in vein Cancer Depression Diabetes High cholesterol Hypertension Mental disorder Psychiatric care Skin cancer Thyroid disorder Uterine cancer Surgical History Hx of removal of cyst History of placement of ear tubes Hx of heart surgery Social History Smoking Status: Former smoker alcohol intake: never substance use type: does not use what type of physical activity do you participate in: none ROS ROS ED Constitutional Constitutional ED: Denies chills or fever(s) Eyes Eyes: Denies blurry vision or change in vision ENT ENT ED: Reports sore throat and other Details: Positive tongue/lip swelling Cardiovascular Cardiovascular: Denies chest pain Respiratory/Chest Respiratory/Chest: Denies cough or dyspnea Gastrointestinal Gastrointestinal: Denies abdominal pain, diarrhea, nausea or vomiting Genitourinary Genitourinary ED: Denies dysuria Musculoskeletal Musculoskeletal: Denies myalgias Integumentary Reports rash Neurologic Neurologic: Denies headache(s) Hematologic/Lymphatic Hematologic/Lymphatic: Denies easy bleeding or easy bruising Allergic/Immunologic Allergic/Immunologic ED: Reports mouth swelling and tongue swelling EXAM Physical Exam Const Vital Signs: 11/27/23 01:10 11/27/23 01:39 11/27/23 02:00 Temperature 98.0 F 99.8 F H Temperature Source Oral Oral Pulse Rate 110 H 128 H 125 H Respiratory Rate 20 H 20 H 12 Respiratory Pattern Normal Blood Pressure 149/104 H 110/78 Blood Pressure Mean 119 88 Pulse Ox 100 98 Oxygen Delivery Method Room Air Room Air 11/27/23 02:09 11/27/23 02:40 11/27/23 03:41 Temperature 100.0 F H 99.7 F H Temperature Source Oral Temporal Pulse Rate 124 H 105 H Respiratory Rate 18 16 Respiratory Pattern Blood Pressure 142/70 H 117/67 Blood Pressure Mean 94 83 Pulse Ox 99 97 Oxygen Delivery Method Room Air Room Air 11/27/23 04:00 11/27/23 05:00 11/27/23 05:40 Temperature 98 F 99 F 99 F Temperature Source Oral Oral Pulse Rate 101 H 91 90 Respiratory Rate 18 18 18 Respiratory Pattern Blood Pressure 124/66 H 132/78 H 128/76 H Blood Pressure Mean 85 96 93 Pulse Ox 97 98 99 Oxygen Delivery Method Room Air Room Air Positive well nourished and well developed General Appearance ED: well developed HEENT HEENT Narrative: There is swelling to the lower lip and tongue noted. No oral lesions noted. No swelling noted in the posterior pharynx. Patient is still tolerating her secretions without difficulty and able to swallow water without issue. No difficulty or change in voice Eyes PERRL and EOMs intact bilaterally Neck supple Neck Narrative: No nuchal rigidity or meningeal signs Resp normal respiratory effort and clear to auscultation bilaterally Resp Narrative: Slight tachypnea is noted without nasal flaring retractions or accessory muscle use. No rales wheezes or rhonchi. No stridor noted Cardio regular rhythm Rate: tachycardic and other Other Details: Slightly tachycardic rate with regular rhythm Extremity normal to inspection Neuro oriented x3, CN's II-XII intact bilaterally and no sensory deficits noted Sensorium / Orientation: alert Motor Exam: strength 5/5 throughout Psych mental status grossly normal Skin Skin Narrative: Patient has blanchable erythema to the bilateral arms across anterior neck and into the face No involvement of the palms or soles MDM MDM MDM Narrative Medical decision making narrative: Patient arrived to the ER slightly hypertensive and tachycardic but satting 98 to 100% on room air and still able to tolerate her secretions and drink fluids without difficulty. She is reported the symptoms began while she was sleeping and the only new exposure was her new antibiotic of Keflex and Flagyl. As the patient had swelling to the lip and tongue this does correlate with anaphylaxis so she was given IM epinephrine as well as IV Solu-Medrol Benadryl and Pepcid. She was watched in the ER for over 4 hours after receiving medication. She was reevaluated multiple times while in the ER her vital signs improved the redness and swelling also improved and she had resolution of the lower lip swelling and on repeat evaluation of the oral cavity there is only mild swelling to the right side of the tongue present. Therefore at this time as the patient's been washed in the ER for over 4 hours since her medications and at this time was able to protect her airway has improvement of her rash and swelling is not requiring supplemental oxygen and can tolerate secretions without difficulty I do not feel that she would benefit from admission. Even though she is a type I diabetic because of the inflammatory reaction she will be kept on prednisone for the next 5 days and she understands she will need to increase her insulin dose secondary to this. She will stop the Keflex and Flagyl and this both as allergies from now on as it is unsure which one caused the reaction and to be changed to clindamycin for continued infection coverage. 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, Type 1 diabetes mellitus, Dental caries Instructions: ED General Allergic Reactions, ED Angioedema Prescriptions: New clindamycin HCl 300 mg capsule 300 mg PO 4X/DAY 10 Days Qty: 40 0RF prednisone 20 mg tablet 40 mg PO DAILY 5 Days Qty: 10 0RF famotidine [Pepcid] 40 mg tablet 40 mg PO DAILY 10 Days Qty: 10 0RF epinephrine 0.3 mg/0.3 mL auto-injector 0.3 mg IM Q30M PRN (Reason: anaphylaxis) Qty: 2 0RF No Action (DME) pen needle, diabetic [BD Ultra-Fine Fariha Pen Needle] 32 gauge x 5/32 needle See Rx Instructions .ROUTE .MEDSUPPLY Qty: 120 6RF Rx Instructions: 4 times daily (DME) blood sugar diagnostic Strip See Rx Instructions .ROUTE .MEDSUPPLY Qty: 150 12RF Rx Instructions: 4 times daily (DME) FreeStyle Jennifer 2 [place] Misc See Rx Instructions .Route Qty: 1 0RF Rx Instructions: As directed fluoxetine 20 mg capsule 20 mg PO DAILY Qty: 30 6RF metronidazole 500 mg tablet 500 mg PO BID cephalexin 500 mg capsule 500 mg PO BID (DME) FreeStyle Jennifer 2 Sensor Kit See Rx Instructions .Route Qty: 2 12RF Rx Instructions: As directed (DME) pen needle, diabetic [BD Ultra-Fine Fariha Pen Needle] 32 gauge x 5/32 needle See Rx Instructions .ROUTE .MEDSUPPLY Qty: 150 5RF Rx Instructions: 4 time daily Fiasp FlexTouch U-100 Insulin 100 unit/mL (3 mL) insulin pen 10 unit subcut TID Qty: 15 6RF insulin degludec [Tresiba FlexTouch U-100] 100 unit/mL (3 mL) insulin pen 20 unit subcut QHS Qty: 15 6RF Primary Care Provider: Care Physician,No Primary Referrals: Willem Pascual MD [Med Staff - Active Staff] - Care Physician,No Primary [Primary Care Provider] - Activity Restrictions/Additional Instructions: Stop the cephalexin/Keflex and metronidazole/Flagyl and list these as allergens as it is unknown which one would have caused your reaction this evening. Begin taking the clindamycin as directed for infection control. Use the Pepcid and prednisone daily to control inflammatory/allergic response and you may take 2 [id number] Benadryl up to 3 times a day if needed. If you feel like you are having worsening tongue or lip swelling or difficulty breathing use the epinephrine/EpiPen that was provided. If you have any further concerns or worsening symptoms please return to the ER for repeat evaluation. The prednisone will elevate your blood sugars so you will need to titrate your insulin to a higher dose for the next 5 days Print Language: Yakut Disposition Disposition: Home, Self Care Discharge Date/Time: 11/27/23 05:44
== END 2023-11-27 05:44 | disposition home or self-care (01) ==
PROVIDERS: Emergency Provider Emergency Medicine; Visit Provider Emergency Medicine
DX: T88.6XXA Anaphylactic reaction due to adverse effect of correct drug or medicament properly administered, initial encounter (principal); E10.638 Type 1 diabetes mellitus with other oral complications; T37.3X5A Adverse effect of other antiprotozoal drugs, initial encounter; T36.1X5A Adverse effect of cephalosporins and other beta-lactam antibiotics, initial encounter; K02.9 Dental caries, unspecified; Z87.891 Personal history of nicotine dependence
CPT/HCPCS: 94640; 96372; 96374; 96375; 99285; J7030; A4216; J3490

== ENCOUNTER 2023-11-28 19:35 | Emergency (ER) | payer OTHER, SELFPAY ==
[2023-11-28 19:36] VITALS: BP 142/108; PULSE 96; RESP 16; TEMP 36.4; O2SAT 98; BMI 31.8
--- NOTE | 2023-11-28 19:50 | EDS_ITS ---
HPI History of Present Illness Chief Complaint: Dental [facility] Medical History Depression Obesity Abdominal pain Tonsillectomy planned Heart valve problem Heart murmur Diabetes insipidus Asthma Home Medications ?Medication ?Instructions ?Recorded ?Last Taken ?Type blood sugar diagnostic #150 ea 11/27/19 Unknown Rx pen needle, diabetic 32 gauge x #120 ea 11/27/19 Unknown Rx 5/32 (BD Ultra-Fine Fariha Pen Needle) flash glucose scanning reader #1 ea 10/24/22 Unknown Rx (FreeStyle Jennifer 2 [place]) flash glucose sensor (FreeStyle #2 ea 04/23/23 Unknown Rx Jennifer 2 Sensor kit) pen needle, diabetic 32 gauge x #150 ea 04/23/23 Unknown Rx 5/32 (BD Ultra-Fine Fariha Pen Needle) fluoxetine 20 mg capsule 20 mg PO DAILY #30 caps 08/27/23 Unknown Rx insulin aspart 10 unit subcut TID #15 mL 08/28/23 Unknown Rx (niacinamide)(U-100) 100 unit/mL(3 mL) subcutaneous pen (Fiasp FlexTouch U-100 Insulin) clindamycin HCl 300 mg capsule 300 mg PO 4X/DAY 10 days #40 caps 11/27/23 Unknown Rx famotidine 40 mg tablet (Pepcid) 40 mg PO DAILY 10 days #10 tabs 11/27/23 Unknown Rx prednisone 20 mg tablet 40 mg (2 x 20 mg) PO DAILY 5 days 11/27/23 Unknown Rx #10 tabs Allergy/AdvReac Type Severity Reaction Status Date / Time cephalexin (From Keflex) Allergy Intermediate Angioedema Verified 11/27/23 01:51 metronidazole (From Flagyl) Allergy Intermediate Angioedema Verified 11/27/23 01:51 azithromycin (From Zithromax) AdvReac Rash Verified 11/27/23 01:51 Family History Other Anxiety Arthritis Asthma Blood clot in vein Cancer Depression Diabetes High cholesterol Hypertension Mental disorder Psychiatric care Skin cancer Thyroid disorder Uterine cancer Surgical History Hx of removal of cyst History of placement of ear tubes Hx of heart surgery Social History Smoking Status: Former smoker alcohol intake: never substance use type: does not use what type of physical activity do you participate in: none EXAM Physical Exam Const Vital Signs: 11/28/23 19:36 11/28/23 21:25 Temperature 97.5 F L 98.2 F Temperature Source Temporal Oral Pulse Rate 96 82 Respiratory Rate 16 17 Blood Pressure 142/108 H 137/68 H Blood Pressure Mean 119 91 Pulse Ox 98 98 Oxygen Delivery Method Room Air Room Air [facility] MDM MDM Narrative Medical decision making narrative: HISTORY OF PRESENT ILLNESS: 28-year-old female presents with dental pain. Notes symptoms have been ongoing for the past week. Notes she is currently on clindamycin and prednisone and Pepcid. Notes increasing pain and swelling specifically to her jaw. Notes difficulty swallowing. Denies shortness of breath. Denies fever or chills. Denies chest pain. Notes her blood sugars have been high. REVIEW OF SYSTEMS: Pertinent positives: Dental pain, submandibular swelling Pertinent negatives: Drooling PHYSICAL EXAM: Nursing triage notes reviewed, Vital signs reviewed Constitutional: please see mdm HENT: MMM, no tonsillar exudates or erythema, uvula midline, patient was controlling secretions, no dysphonia. There is slight trismus, there is submandibular fullness, the floor the patient's mouth displays fullness as well. Eyes: Pupils equal round and reactive to light, Extraocular muscles intact Neck: No stridor, no JVD, full neck ROM Lungs: Clear to auscultation, No wheezing or rales. No increased work of breathing, no conversational dyspnea, no accessory muscle use, no nasal flaring. No respiratory distress noted Heart: Regular rate and rhythm, No murmurs, No rubs and No gallops, 2+ distal pulses (radial, femoral, posterior tibial) in all extremities MEDICAL DECISION MAKING: Chief Complaint: Dental pain External records reviewed: Reviewed prior ED visits. Initial ED visit on 11/23 patient was prescribed Flagyl and Keflex. During this visit patient was scheduled to see a dentist in 2 days. Subsequent ED stay with concern for allergy to Flagyl and Keflex patient prescribed clindamycin. This is on 11/27/2023 within the last 24 hours. Factors affecting care: Type 1 diabetes Social determinants of health: None History obtained from others: The patient's mother Consults: Critical care, pharmacy MDM Narrative: The patient was hemodynamically stable, afebrile, nontoxic-appearing. Exam concerning for Sameer angina or other deep neck space infection. Placed an IV. Gave IV antibiotics. Obtain advanced imaging (CT neck and soft tissue) and labs. I considered the following differential diagnosis: Dental abscess, ANUG, Ludewig's angina, RPA, CAFETERIA CLERK, dental caries, gingivitis CT scan was read also shows a large submandibular abscess. Radiology agrees this concerning is possible 6 x 3 x 3 cm. Is concern for Sameer angina. Called and the patient transferred to the nearest center with ENT. CBC with leukocytosis suggestive of systemic inflammation likely exacerbated by recent steroid dose, no anemia or thrombocytopenia noted BMP with pseudohyponatremia, no significant Doon normalities, mild metabolic acidosis, no LOUISA or signs of endorgan hypoperfusion VBG without acidosis however the patient bicarb was 18 no evidence of DKA Serum acetone negative Given patient's finding of Sameer angina patient was transferred to their center with ENT. In this case it was [facility]. Discussed with ICU attending Dr. Medrano who accepted the patient's case. While there is no evidence of DKA at this time I did treat the patient with 10 mg of IV Decadron to prevent inflammation. Given this will likely increase her blood sugar levels I did give 5 units of short acting insulin. Checked patient blood sugar before giving insulin and an hour afterwards. My discussion with Dr. Medrano yielded a recommendation to give the patient her long-acting insulin. He stated if she had not taken a long intensity of her one half her usual dose. Usual dose up with 20 units of Tresiba. I did consult pharmacy as well who noted that NPH has a one-to-one ratio. So gave the patient 10 units of NPH long-acting insulin to better cover her insulin needs and to prevent slide into DKA. He also recommended placing a second IV. Insulin was ordered. Communication nursing need for second IV they will attempt to obtain additional access. Will continue checking blood sugars every hour while in the emergency department. Shared decision making: I will have a discussion with the patient and or visitors regarding risk/benefits of further testing or admission. They will be made aware of of the risk/benefits inherent in this decision they will be given the opportunity to voice understanding. Total critical care time today provided was at least 35 minutes. This excludes seperately billable procedures. There was a high probability of clinically significant/life threatening deterioration in the patient's condition which required my urgent intervention. Impression: 1. Sameer angina 2. History of type 1 diabetes 3. Hyperglycemia 4. Leukocytosis Disposition: Transfer to [facility] for definitive ENT care and ICU airway watch This note was generated with [employer] dictation software. It may contain incorrect words, spelling, and punctuation that were not noted in review of the chart prior to signing. Lab Data Labs: Laboratory Results - last 24 hr 11/28/23 11/28/23 11/28/23 20:38 21:35 22:34 WBC 28.4 H RBC 4.50 Hgb 14.0 Hct 40.6 MCV 90.2 MCH 31.1 MCHC 34.5 RDW Std Deviation 43.1 RDW Coeff of Raymundo 13.1 Plt Count 350 MPV 10.9 Sodium 130 L Potassium 4.1 Chloride 100 Carbon Dioxide 20.0 L Anion Gap 10 BUN 28 H Creatinine 1.10 H Estim Creat Clear Calc 88.74 Est GFR (MDRD) Af Amer 76 Est GFR (MDRD) Non-Af 63 BUN/Creatinine Ratio 25.5 H Glucose 313 H Calcium 10.1 Acetone Level NEGATIVE POC Glucose 232 H Radiography Diagnostic Testing: Clinical Impression(s) from Imaging Studies Soft Tissue Neck CT 11/28/23 20:07 IMPRESSION: Complex fluid collection on the right side of the floor the mouth extending to the submandibular gland with abscess and Sameer''s angina. Enlarged lymph nodes. Dental cavities and erosive change of the mandible Electronically Signed: Reji Flores MD at 22:15 EDT , ADDENDUM: 11/28/232229 IMPRESSION: Complex fluid collection on the right side of the floor the mouth extending to the submandibular gland with abscess and Sameer''s angina. Enlarged lymph nodes. Dental cavities and erosive change of the mandible N.B. : The above Results were Read Back by Reji Flores MD to Mehul Moore DO, and understanding confirmed on 11/28/2023 22:23:20 (ET). Electronically Signed: Reji Flores MD at 22:15 EDT , Discharge Plan Triage Chief Complaint: Dental ED Provider: Mehul Moore Dx/Rx/DC Orders Instructions: ED Dental Pain Prescriptions: No Action (DME) pen needle, diabetic [BD Ultra-Fine Fariha Pen Needle] 32 gauge x 5/32 needle See Rx Instructions .ROUTE .MEDSUPPLY Qty: 120 6RF Rx Instructions: 4 times daily (DME) blood sugar diagnostic Strip See Rx Instructions .ROUTE .MEDSUPPLY Qty: 150 12RF Rx Instructions: 4 times daily (DME) FreeStyle Jennifer 2 [place] Misc See Rx Instructions .Route Qty: 1 0RF Rx Instructions: As directed fluoxetine 20 mg capsule 20 mg PO DAILY Qty: 30 6RF clindamycin HCl 300 mg capsule 300 mg PO 4X/DAY 10 Days Qty: 40 0RF prednisone 20 mg tablet 40 mg PO DAILY 5 Days Qty: 10 0RF famotidine [Pepcid] 40 mg tablet 40 mg PO DAILY 10 Days Qty: 10 0RF (DME) FreeStyle Jennifer 2 Sensor Kit See Rx Instructions .Route Qty: 2 12RF Rx Instructions: As directed (DME) pen needle, diabetic [BD Ultra-Fine Fariha Pen Needle] 32 gauge x 5/32 needle See Rx Instructions .ROUTE .MEDSUPPLY Qty: 150 5RF Rx Instructions: 4 time daily Fiasp FlexTouch U-100 Insulin 100 unit/mL (3 mL) insulin pen 10 unit subcut TID Qty: 15 6RF Primary Care Provider: Rob Salas Referrals: Care Physician,No Primary [Non-Staff] - Activity Restrictions/Additional Instructions: Thank you for trusting us with your care today! Please take Tylenol (2 pills, 650 mg), ibuprofen (2 pills, 400 mg) every 6 hours as needed for pain and fever control. Please return to the emergency department if your symptoms change or worsen. Specifically develop difficulty swallowing, difficulty opening your mouth, neck stiffness, swelling underneath your jaw, drooling, loud upper airway noises (stridor), chest pain or shortness of breath. Please follow with your dentist for further outpatient evaluation and management. Print Language: Norwegian Disposition Disposition: Acute Care Hospital Discharge Location: [facility]
--- NOTE | 2023-11-28 20:07 | CT_ITS ---
We are attempting to reach an attending provider to discuss findings. An addendum with communication details will be sent when the communication is complete. STUDY: CT SOFT TISSUE NECK WITH CONTRAST REASON FOR EXAM: Female, 28 years old. Dental infection, concern for Sameer''s RADIATION DOSAGE (If Supplied By Facility): CTDIvol = ( 15.61 ) mGy, DLP = ( 440.71 ) mGycm TECHNIQUE: The patient was scanned in a multi-detector CT scanner. High resolution transaxial imaging was performed following intravenous administration of IV 75mL Isovue-370. Sagittal and coronal images were reconstructed. Individualized dose optimization techniques were used for this CT. COMPARISON: None. FINDINGS: There are missing teeth and dental cavities. There is periapical lucency of the anterior mandible surrounding right central incisor. There is a 6.4 x 3.4 x 3.1 cm lobular peripherally enhancing fluid collection extending along the right side of the floor of the mouth consistent with abscess. Collection extends to the right submandibular gland. There is impression upon the base of the tongue and effacement of the airway. There are enlarged submandibular lymph nodes measuring up to 1.4 cm on the right. There are enlarged jugular lymph nodes including measuring 1.5 cm on the right. Normal bilateral parotid glands. Normal bilateral masonry teacher spaces. Normal bilateral parapharyngeal spaces. Normal bilateral carotid spaces. Normal visualized nasopharynx. Normal retropharyngeal space. Normal perivertebral space. There are enlarged lingual tonsils. Normal epiglottis, bilateral vallecula and hypopharynx. The pre-epiglottic and paraglottic adipose spaces are normal. Normal visualized bilateral piriform sinuses, aryepiglottic folds, vocal cords, and arytenoid-cricoid articulations. Normal subglottic trachea. Normal bilateral lobes of the thyroid gland. Normal visualized pulmonary apices. Normal visualized paranasal sinuses. Normal visualized cervical spine. CT/Soft Tissue Neck WITH Contrast IMPRESSION: Complex fluid collection on the right side of the floor the mouth extending to the submandibular gland with abscess and Sameer''s angina. Enlarged lymph nodes. Dental cavities and erosive change of the mandible Electronically Signed: Reji Flores MD at 22:15 EDT ,
[2023-11-28] MEDS: Acetaminophen 325 MG Tablet 650 MG PO (20:10)
[2023-11-28] MEDS: Lidocaine 2% Viscous15 ML UDC 15 ML PO (20:10)
[2023-11-28] MEDS: 0.9% Normal Saline (1000mL) 1,000 ML 999 ML IV (20:40)
[2023-11-28 20:51] LABS: Hematocrit 40.6 % (37-47); Mean Corp Hgb Conc 34.5 g/dL (32-36); Mean Corpuscular Hgb 31.1 pg (27.0-32.0); Mean Corpuscular Volume 90.2 fL (81-99); Mean Platelet Vol. 10.9 fl (6.2-12.0); Platelet Count 350 K/mm3 (150-450); RBC Distribution Width CV 13.1 % (11.6-14.6); RBC Distribution Width SD 43.1 fl (35.1-43.9); White Blood Count 28.4 K/mm3 (4.4-11.0)
[2023-11-28] MEDS: Clindamycin 600 MG/50 ML BAG 100 MG IV (20:55)
[2023-11-28 21:06] LABS: Anion Gap 10 (5-15); BUN 28 mg/dL (7-18); BUN/Creat Ratio 25.5 RATIO (10-20); Calcium,Total 10.1 mg/dL (8.5-10.1); Chloride 100 mmol/L (98-107); EST Glomerular Filtration Rate 63 mL/min (>60); Est Glom Filt Rate - Afr Amer 76 mL/min (>60); Estimated Creatinine Clearance 88.74 ml/min; Glucose 313 mg/dL (74-106); Potassium 4.1 mmol/L (3.5-5.1); Sodium Level 130 mmol/L (136-145)
[2023-11-28 21:25] VITALS: BP 137/68; PULSE 82; RESP 17; TEMP 36.8; O2SAT 98
[2023-11-28 22:53] LABS: Bedside Glucose 232 mg/dL (74-106)
[2023-11-28] MEDS: dexAMETHasone 10 MG/ML Vial IV (23:03)
[2023-11-28 23:25] VITALS: BP 159/67; PULSE 86; RESP 20; O2SAT 99
[2023-11-28] MEDS: Meropenem 1 GM in 0.9% Normal Saline (100mL MB+) 100 ML IV (23:54)
[2023-11-29] MEDS: Insulin NPH Human 100 UNITS/ML PEN 10 UNITS SC
[2023-11-29 00:23] LABS: Bedside Glucose 197 mg/dL (74-106)
[2023-11-29] MEDS: Ketorolac 30 MG/ML Syringe IV (00:35)
[2023-11-29 01:00] VITALS: BP 139/83; O2SAT 99
[2023-11-29 01:30] LABS: Blood Gas Specimen Type VEN; O2 Delivery Device Not entered; SITE Not entered; VBG BASE EXCESS -7 mmol/L (-1.0-3.5); VBG Bicarbonate 19 mmol/L (22-26); VBG PO2 31 mmHg (25-40); VBG SO2 55 % (50-70); VBG TCO2 20 mmol/L (23-33); VBG pCO2 35.5 mmHg (41-51); VBG pH 7.33 (7.32-7.42)
[2023-11-29 01:32] VITALS: BP 121/60; PULSE 78; RESP 18; TEMP 36.6; O2SAT 97
[2023-11-29 01:41] LABS: Bedside Glucose 225 mg/dL (74-106)
== END 2023-11-29 01:33 | disposition short-term general hospital (02) ==
PROVIDERS: Emergency Provider Emergency Medicine; PCP Internal Medicine Endocrinology, Diabetes & Metabolism; Visit Provider Emergency Medicine
DX: K12.2 Cellulitis and abscess of mouth (principal); E10.65 Type 1 diabetes mellitus with hyperglycemia; K11.3 Abscess of salivary gland; Z87.891 Personal history of nicotine dependence
CPT/HCPCS: 70491; 80048; 82009; 82803; 82962; 85027; 96365; 96367; 96375; 96376; 99285; J2185; J7030; J7050; Q9967; A4216

== ENCOUNTER 2024-04-29 15:42 | Emergency (ER) | payer OTHER, SELFPAY ==
[2024-04-29 15:43] VITALS: BP 148/77; PULSE 81; RESP 15; TEMP 36.1; O2SAT 100; BMI 35.8
--- NOTE | 2024-04-29 16:00 | EX.ED.GENINJ ---
HPI History of Present Illness Chief Complaint: Laceration Detail of Chief Complaint: Laceration left index finger, ulnar side Informant: patient Onset/Context/Timing Onset: Hours Mechanism/Context: Blunt Injury Location of pain/injuries: - (Right index finger) Quality of Pain: - (None) Current Severity: Gone Worsened by: Nothing Relieved by: Nothing Associated Symptoms Associated Symptoms: Negative for Parasthesias, Weakness or Loss of function Narrative Narrative: Patient is a 29-year-old [id number] female presents with laceration to the distal ulnar side of her left index finger. This occurred when she was opening a door as she was leaving work. She denies paresthesia, anesthesia or motor symptoms. Prior similar symptoms: No Recent Illness/Hospitalization: No PFSH PFSH Medical History Depression Obesity Abdominal pain Tonsillectomy planned Heart valve problem Heart murmur Diabetes insipidus Asthma Home Medications ?Medication ?Instructions ?Recorded ?Last Taken ?Type blood sugar diagnostic #150 ea 11/27/19 Unknown Rx pen needle, diabetic 32 gauge x #120 ea 11/27/19 Unknown Rx 5/32 (BD Ultra-Fine Fariha Pen Needle) flash glucose scanning reader #1 ea 10/24/22 Unknown Rx (FreeStyle Jennifer 2 [place]) flash glucose sensor (FreeStyle #2 ea 04/23/23 Unknown Rx Jennifer 2 Sensor kit) pen needle, diabetic 32 gauge x #150 ea 04/23/23 Unknown Rx 5/32 (BD Ultra-Fine Fariha Pen Needle) fluoxetine 20 mg capsule 20 mg PO DAILY #30 caps 08/27/23 Unknown Rx insulin regular human 100 unit/mL 1 sliding scale dose subcut 03/07/24 Unknown History injection solution (Novolin R USEASDIRECTD Regular U-100 Insulin) Allergy/AdvReac Type Severity Reaction Status Date / Time cephalexin (From Keflex) Allergy Intermediate Angioedema Verified 04/29/24 15:43 metronidazole (From Flagyl) Allergy Intermediate Angioedema Verified 04/29/24 15:43 azithromycin (From Zithromax) AdvReac Rash Verified 04/29/24 15:43 Family History Other Anxiety Arthritis Asthma Blood clot in vein Cancer Depression Diabetes High cholesterol Hypertension Mental disorder Psychiatric care Skin cancer Thyroid disorder Uterine cancer Surgical History Hx of removal of cyst History of placement of ear tubes Hx of heart surgery Social History Smoking Status: Current some day smoker tobacco type: cigarettes alcohol intake: never substance use type: does not use what type of physical activity do you participate in: none ROS ROS ED Constitutional Constitutional ED: Denies chills, fever(s) or subjective Musculoskeletal Musculoskeletal: Reports other Details: Laceration without pain or bruising. Integumentary Denies Abrasions or rash Neurologic Neurologic: Denies paresthesias or weakness EXAM Physical Exam Const Vital Signs: 04/29/24 15:43 Temperature 97 F L Temperature Source Temporal Pulse Rate 81 Respiratory Rate 15 Blood Pressure 148/77 H Blood Pressure Mean 100 Pulse Ox 100 Oxygen Delivery Method Room Air Positive well nourished and well developed General Appearance ED: well developed and NAD HEENT atraumatic and tenderness Eyes PERRL and EOMs intact bilaterally Resp normal respiratory effort Cardio regular rhythm Rate: regular rate Extremity Extremity Narrative: Curvilinear laceration that will require repair since it is gaping and bleeding. Median, radial and ulnar function intact. Capillary refill normal. There is no subungual hematoma noted. Sensation is intact. Neuro oriented x3 and CN's II-XII intact bilaterally Sensorium / Orientation: alert Psych mental status grossly normal and thought process normal Skin Skin Narrative: Laceration. PROC Procedures Other Procedures Procedure(s): Laceration repair: Patient was Nestabs by digital block. A total of 3 cc of 1% lidocaine was infiltrated. After 5 minutes patient had no sensation. The wound was cleansed and irrigated with 100 cc of normal saline. Using 5-0 Ethilon 2 simple interrupted sutures was placed. She tolerated the procedure without complication. Total length of laceration is 1.0 cm MDM MDM MDM Narrative Medical decision making narrative: Patient has a laceration. There is no indication for x-ray. Will anesthetized finger and cleaned and sutured. Discharge Plan Triage Chief Complaint: Laceration ED Provider: Jefry Stevenson Dx/Rx/DC Orders Clinical Impression: Laceration of left index finger, Type 1 diabetes mellitus, BMI 35.0-35.9,adult Instructions: ED Laceration, Hand: All Closures Prescriptions: No Action (DME) pen needle, diabetic [BD Ultra-Fine Fariha Pen Needle] 32 gauge x 5/32 needle See Rx Instructions .ROUTE .MEDSUPPLY Qty: 120 6RF Rx Instructions: 4 times daily (DME) blood sugar diagnostic Strip See Rx Instructions .ROUTE .MEDSUPPLY Qty: 150 12RF Rx Instructions: 4 times daily (DME) FreeStyle Jennifer 2 [place] Misc See Rx Instructions .Route Qty: 1 0RF Rx Instructions: As directed fluoxetine 20 mg capsule 20 mg PO DAILY Qty: 30 6RF Novolin R Regular U100 Insulin 100 unit/mL solution 1 sliding scale dose subcut USEASDIRECTD (DME) FreeStyle Jennifer 2 Sensor Kit See Rx Instructions .Route Qty: 2 12RF Rx Instructions: As directed (DME) pen needle, diabetic [BD Ultra-Fine Fariha Pen Needle] 32 gauge x 5/32 needle See Rx Instructions .ROUTE .MEDSUPPLY Qty: 150 5RF Rx Instructions: 4 time daily Primary Care Provider: Rob Salas Referrals: Rob Salas MD [Primary Care Provider] - 7 Days for suture removal Print Language: Beninese Disposition Disposition: Home, Self Care
[2024-04-29] MEDS: Lidocaine 1% (20 ml mdv) 20 ML Vial INFILT (16:09)
== END 2024-04-29 17:02 | disposition home or self-care (01) ==
PROVIDERS: Emergency Provider Emergency Medicine; PCP Internal Medicine Endocrinology, Diabetes & Metabolism; Visit Provider Emergency Medicine
DX: S61.211A Laceration without foreign body of left index finger without damage to nail, initial encounter (principal); E10.9 Type 1 diabetes mellitus without complications; F17.210 Nicotine dependence, cigarettes, uncomplicated; X58.XXXA Exposure to other specified factors, initial encounter
CPT/HCPCS: 12001; 99283

== ENCOUNTER → 2024-05-29 | Outpatient (CLI) | payer OTHER, SELFPAY ==
[2024-05-29 15:54] LABS: Anion Gap 6 (5-15); BUN 9 mg/dL (7-18); BUN/Creat Ratio 12.7 RATIO (10-20); Calcium,Total 9.3 mg/dL (8.5-10.1); Chloride 106 mmol/L (98-107); Cholesterol 169 mg/dL (200); Creatinine, Serum 0.71 mg/dL (0.55-1.02); EST Glomerular Filtration Rate 104 mL/min (>60); Est Glom Filt Rate - Afr Amer 126 mL/min (>60); Glucose 125 mg/dL (74-106); High Density Lipoprotein 72 mg/dL; Potassium 4.3 mmol/L (3.5-5.1); Sodium Level 139 mmol/L (136-145); Triglycerides 28 mg/dL; Very Low Density Lipoprotein 6 mg/dL (5-40)
[2024-05-29 17:03] LABS: Hemoglobin A1c 8.9 % (3.8-5.6)
== END | disposition home or self-care (01) ==
PROVIDERS: PCP Family Medicine; Referring Provider Family Medicine; Visit Provider Family Medicine
DX: Z00.00 Encounter for general adult medical examination without abnormal findings (principal); E11.9 Type 2 diabetes mellitus without complications
CPT/HCPCS: 36415; 80048; 80061; 83036